=== PATIENT | female | born 1955 | race Caucasian/White ===

== ENCOUNTER → 2016-08-14 | Outpatient (CLI) | payer OTHER ==
--- NOTE | 2016-08-18 13:46 | MM ---
Reason for exam: screening (asymptomatic). Last mammogram was performed 1 year ago. History: Patient is postmenopausal and has history of other cancer at age 40. Took estrogen for 4 years 6 months beginning at age 46. Took progesterone for 4 years 6 months beginning at age 46. Physical Findings: A clinical breast exam by your physician is recommended on an annual basis and results should be correlated with mammographic findings. MG Screening Mammo w CAD Bilateral CC and MLO view(s) were taken. Prior study comparison: August 06, 2014, bilateral MG screening mammo w CAD. August 03, 2013, bilateral MG screening mammo w CAD. There are scattered fibroglandular densities. Finding: There are typically a few benign round calcifications in both breasts. ASSESSMENT: Benign, BI-RAD 2 RECOMMENDATION: Routine screening mammogram of both breasts in 1 year.
== END | disposition home or self-care (01) ==
LOC: RADMAMWWP 10:53
PROVIDERS: ATTEND Family Medicine
DX: Z12.31 Encounter for screening mammogram for malignant neoplasm of breast (principal); R92.1 Mammographic calcification found on diagnostic imaging of breast

== ENCOUNTER → 2017-09-01 | Outpatient (CLI) | payer OTHER ==
--- NOTE | 2017-09-03 10:47 | MM ---
Reason for exam: screening (asymptomatic). Last mammogram was performed 1 year and 1 month ago. History: Patient is postmenopausal and has history of other cancer at age 40. Took estrogen for 4 years 6 months beginning at age 46. Took progesterone for 4 years 6 months beginning at age 46. Physical Findings: A clinical breast exam by your physician is recommended on an annual basis and results should be correlated with mammographic findings. MG Screening Mammo w CAD Bilateral CC and MLO view(s) were taken. Prior study comparison: August 14, 2016, bilateral MG screening mammo w CAD. August 14, 2015, bilateral MG 3d screening mammo w/cad. There are scattered fibroglandular densities. There are benign appearing round oval circumscribed bilateral stable masses. Benign appearing bilateral calcifications. No suspicious abnormality. ASSESSMENT: Benign, BI-RAD 2 RECOMMENDATION: Routine screening mammogram of both breasts in 1 year.
== END | disposition home or self-care (01) ==
LOC: RADMAMWWP 15:06
PROVIDERS: ATTEND Family Medicine
DX: Z12.31 Encounter for screening mammogram for malignant neoplasm of breast (principal)
CPT/HCPCS: 77067

== ENCOUNTER → 2018-08-12 | Outpatient (CLI) | payer OTHER ==
--- NOTE | 2018-08-12 19:10 | MR ---
EXAMINATION TYPE: MR lumbar spine wo con DATE OF EXAM: 08/12/2018 COMPARISON: None HISTORY: LBP, lt sciatica x 4 mos, no trauma CONTRAST: 0 mL intravenous Gadavist. TECHNIQUE: Multiplanar, multisequence images of the lumbar spine were acquired. FINDINGS: L5-S1: No significant disc bulge or disc herniation. No spinal canal stenosis. There may be some mo derate right foraminal stenosis. Mild facet hypertrophy is present with posterior lateral sac contact . L4-L5: There is a grade 1 spondylolisthesis of L4 anterior on L5. Disc uncovering has mild anterior t hecal sac contact. Facet hypertrophy and ligamentum flavum laxity are present, greater on the left wi th posterior lateral thecal sac compression. Neural foramen are patent. L3-L4: No significant disc bulge or disc herniation. No spinal canal stenosis. No foraminal stenosi s. Facet hypertrophy has posterior lateral thecal sac impression, greater on the left.. L2-L3: No significant disc bulge or disc herniation. No spinal canal stenosis. No foraminal stenosi s. L1-L2: No significant disc bulge or disc herniation. No spinal canal stenosis. No foraminal stenosi s. T12-L1: No significant disc bulge or disc herniation. No spinal canal stenosis. No foraminal stenos is. There is some degenerative disc change T12-L1 and T11-12 evident on the sagittal plane images. Some s ignal may be within the spinal cord posterior to the T11 level on the sagittal T2-weighted images. Re commend thoracic spine MRI with contrast for additional evaluation IMPRESSION: 1. There is some signal abnormality within the spinal cord on T2 sagittal images which is incompletel y evaluated on this examination. Recommend thoracic MRI with contrast with attention to the distal sp inal cord posterior to T11. 2. Grade 1 spondylolisthesis of L4 anterior and L5. 3. Facet hypertrophy with some ligamentum flavum laxity causing posterior lateral thecal sac compress ion L5-S1, L4-5, and L3-4.
== END | disposition home or self-care (01) ==
LOC: RADMRIMAIN 17:40
PROVIDERS: ATTEND Family Medicine
DX: M51.36 Other intervertebral disc degeneration, lumbar region (principal); M43.16 Spondylolisthesis, lumbar region; G95.29 Other cord compression; M24.28 Disorder of ligament, vertebrae; M54.40 Lumbago with sciatica, unspecified side
CPT/HCPCS: 72148

== ENCOUNTER → 2018-09-14 | Outpatient (CLI) | payer OTHER ==
--- NOTE | 2018-09-15 10:30 | MR ---
EXAMINATION TYPE: MR thoracic spine wo/w con DATE OF EXAM: 09/14/2018 COMPARISON: None HISTORY: Back pain x 3 mos, DDD CONTRAST: Performed utilizing 9 mL intravenous Gadavist gadolinium contrast. TECHNIQUE: Multiplanar, multiecho imaging on a 3.0 Tiffani magnet is performed through the thoracic spi ne. There is a punctate hyperintensity on T2-weighted sequences posterior to the T9 level of uncertain et iology. Evaluation with contrast is recommended. Spinal cord otherwise maintains normal signal. Vertebral body alignment is normal. Vertebral body heights are preserved. Disc heights are preserved. Disc hydration levels are preserved. No spinal canal stenosis within the thoracic spine is evident. On cane flume feeding machine operator images there is some disc bulging and narrowing at C3-4 level. This may has some signal brewer ge within the spinal cord. Recommend MRI of the cervical spine for additional evaluation. IMPRESSIONS: 1. Tiny focal area of increased signal within the spinal cord posterior to the T9 level. Additional e valuation with postcontrast MRI thoracic spine is recommended. 2. Changes within the upper cervical spine may have myelomalacia. Recommend MRI cervical spine for ad ditional evaluation, attention C3-4 level
== END | disposition home or self-care (01) ==
LOC: RADMRIMAIN 19:02
PROVIDERS: ATTEND Family Medicine
DX: M51.34 Other intervertebral disc degeneration, thoracic region (principal)
CPT/HCPCS: 72157; A9585

== ENCOUNTER → 2018-09-27 | Outpatient (CLI) | payer OTHER ==
--- NOTE | 2018-09-28 11:33 | MM ---
Reason for exam: screening (asymptomatic). Last mammogram was performed 1 year and 1 month ago. History: Patient is postmenopausal and has history of other cancer at age 40. Took estrogen for 4 years 6 months beginning at age 46. Took progesterone for 4 years 6 months beginning at age 46. Physical Findings: A clinical breast exam by your physician is recommended on an annual basis and results should be correlated with mammographic findings. MG Screening Mammo w CAD Bilateral CC and MLO view(s) were taken. Prior study comparison: September 01, 2017, bilateral MG screening mammo w CAD. August 14, 2016, bilateral MG screening mammo w CAD. There are scattered fibroglandular densities. There are benign appearing round oval circumscribed bilateral masses, likely intramammary lymph nodes. Benign appearing bilateral calcifications. No suspicious abnormality. No significant changes when compared with prior studies. ASSESSMENT: Benign, BI-RAD 2 RECOMMENDATION: Routine screening mammogram of both breasts in 1 year.
== END | disposition home or self-care (01) ==
LOC: RADMAMWWP 07:55
PROVIDERS: ATTEND Family Medicine
DX: Z12.31 Encounter for screening mammogram for malignant neoplasm of breast (principal)
CPT/HCPCS: 77067

== ENCOUNTER 2020-03-20 07:02 | Day surgery (SDC) | payer MEDICARE, OTHER ==
[2020-03-18 09:26] VITALS: BMI 21.0
[~2020-03-20 07:02] MED LIST: LACTATED RINGERS 1,000 ML IV SCH
[2020-03-20 07:39] VITALS: TEMP 96.8
[2020-03-20] MEDS ORDERED: LIDOCAINE 1% (10MG/ML) FOR IV START INTRADERMA ONE (07:45)
[2020-03-20] MEDS ORDERED: MIDAZOLAM 2 MG/2 ML VIAL ONE (07:50)
[2020-03-20] MEDS ORDERED: PROPOFOL 10 MG/ML 20 ML VIAL IV ONE (07:50)
[2020-03-20] MEDS ORDERED: fentaNYL (PF) 50 MCG/ML 2 ML AMP ONE (07:50)
[2020-03-20 07:51] LABS: Glucose,Whole Blood 180 mg/dL (75-99)
--- NOTE | 2020-03-20 08:26 | P.PCN ---
Date of Procedure: 03/20/20 Procedure(s) Performed: Brief history: Patient is a pleasant 64-year-old white female scheduled for an elective upper endoscopy as well as colonoscopy as a part of evaluation of I deficiency anemia. She denies any GI symptoms. Procedure performed: Esophagogastroduodenoscopy with biopsy Colonoscopy Preoperative diagnosis: Iron deficiency anemia Anesthesia: [facility] [place] Procedure: After informed consent was obtained from the patient was brought into the endoscopy unit and IV sedation was administered by anesthesia under continuous monitoring. Initially upper endoscopy was done. The Olympus GF 160 video endoscope was inserted inserted into the mouth and esophagus intubated without any difficulty and was gradually advanced into the stomach and duodenum and carefully examined. The bulb and second part of the duodenum appeared normal. His were done from the duodenum to rule out celiac disease. The scope was then withdrawn into the stomach adequately insufflated with air and upon careful examination the antrum @scattered erosions and biopsies were also done from this area. The body, cardia and fundus appeared normal. The scope was then withdrawn into the esophagus. The GE junction was located at 40 cm to the incisors. It appeared regular with no erythema erosions or ulcerations. Rest of the esophagus appeared normal. Patient tolerated the procedure well. At this time the patient continued to remain sedation. Initial digital rectal examination was normal. Olympus CF 160 video colonoscope was then inserted into the rectum and gradually advanced to the cecum without any difficulty. Careful examination was performed as the scope was gradually being withdrawn. The prep was excellent. The cecum, ascending colon, transverse colon, descending colon, sigmoid colon and rectum appeared normal. Retroflexion was performed in the rectum and no lesions were noted. Patient tolerated the procedure well. Impression: 1. Upper Endoscopy revealed erosive gastritis but no evidence of esophagitis or peptic ulcer 2. Coloscopy was within normal limits with no evidence of colitis or colorectal neoplasia Recommendations: Findings of this examination were discussed with the patient as well as her family. She was advised to follow with the biopsy results. She can have a repeat screening colonoscopy in 10 years.
[2020-03-20 08:45] VITALS: BP 126/71; PULSE 71; RESP 20
== END 2020-03-20 09:07 | disposition home or self-care (01) ==
LOC: ORWHC2ENDO 07:02
PROVIDERS: ATTEND Internal Medicine Gastroenterology
DX: K29.60 Other gastritis without bleeding (principal); D50.9 Iron deficiency anemia, unspecified; I10 Essential (primary) hypertension; E78.5 Hyperlipidemia, unspecified; G47.33 Obstructive sleep apnea (adult) (pediatric); E11.9 Type 2 diabetes mellitus without complications; Z86.73 Personal history of transient ischemic attack (TIA), and cerebral infarction without residual deficits; Z98.51 Tubal ligation status; Z98.890 Other specified postprocedural states; Z79.84 Long term (current) use of oral hypoglycemic drugs; Z79.82 Long term (current) use of aspirin; Z79.899 Other long term (current) drug therapy; Z91.041 Radiographic dye allergy status
CPT/HCPCS: 88305; 45378; 43239; J2250; J3010; J2704

== ENCOUNTER 2023-07-28 13:20 | Emergency (ER) | payer MEDICARE, OTHER ==
--- NOTE | 2023-07-28 14:42 | ED ---
URI HPI - General Chief Complaint: Upper Respiratory Infection Stated Complaint: Cough,back pain Time Seen by Provider: 07/28/23 13:58 Source: patient, RN notes reviewed Mode of arrival: ambulatory Limitations: no limitations - History of Present Illness Initial Comments: 67-year-old female presents emergency department chief complaint of cough congestion. Patient states she has not felt well for the last week. She was seen in urgent care still she had an ear infection was placed on amoxicillin. She states her cough is worse and is productive. She states she has minimal shortness of breath denies any chest pain denies any abdominal pain no nausea vomit diarrhea constipation no other complaints. She states her significant other was also sick. - Related Data Home Medications Medication Instructions Recorded Confirmed Aspirin EC [Ecotrin] 81 mg PO DAILY 04/26/14 03/20/20 Atorvastatin [Lipitor] 40 mg PO HS 04/26/14 03/20/20 DULoxetine HCL [Cymbalta] 60 mg PO DAILY 04/26/14 03/20/20 Ezetimibe [Zetia] 10 mg PO DAILY 04/26/14 03/20/20 Ferrous Sulfate [Feosol] 325 mg PO HS 04/26/14 03/20/20 Losartan Potassium 100 mg PO DAILY 04/26/14 03/20/20 Multivitamins, Thera [Multivitamin] 1 each PO DAILY 04/26/14 03/20/20 Timolol 0.5% Ophth Soln [Timoptic 1 drop BOTH EYES DAILY 04/26/14 03/20/20 0.5% Ophth Soln] Travoprost [Travatan Z 0.004%] 1 drop BOTH EYES HS 04/26/14 03/20/20 Vit A/Vit C/Vit E/Zinc/Copper 1 cap PO DAILY 04/26/14 03/20/20 [ICAPS SOFTGEL] buPROPion HCL [Wellbutrin XL] 300 mg PO DAILY 04/26/14 03/20/20 lamoTRIgine [LaMICtal] 300 mg PO HS 04/26/14 03/20/20 metFORMIN HCL [Glucophage] 1,000 mg PO BID 04/26/14 03/20/20 nadoloL [Corgard] 40 mg PO HS 04/26/14 03/20/20 Previous Rx's Medication Instructions Recorded Azithromycin [Zithromax Z Pack] 0 tab PO DIRECTED #6 tab 07/28/23 predniSONE 50 mg PO DAILY #5 tab 07/28/23 Allergies Allergy/AdvReac Type Severity Reaction Status Date / Time CAT SCAN CONTRAST AdvReac Unknown BLOOD Uncoded 07/28/23 13:39 PRESSURE DROPPED. Review of Systems ROS Statement: Those systems with pertinent positive or pertinent negative responses have been documented in the HPI. ROS Other: All systems not noted in ROS Statement are negative. Past Medical History Past Medical History: CVA/TIA, Diabetes Mellitus, Eye Disorder, Hyperlipidemia, Hypertension, Sleep Apnea/CPAP/BIPAP Additional Past Medical History / Comment(s): HX OF TIA, GLAUCOMA, states low hemaglobin History of Any Multi-Drug Resistant Organisms: None Reported Past Surgical History: Appendectomy, Orthopedic Surgery, Tubal Ligation Additional Past Surgical History / Comment(s): RT FOOT SURG. colonoscopy, benign cyst removed from back Past Anesthesia/Blood Transfusion Reactions: Previous Problems w/ Anesthesia Additional Past Anesthesia/Blood Transfusion Reaction / Comment(s): STATES DIFFICULTY WAKING UP. Past Psychological History: Depression Smoking Status: Never smoker Past Alcohol Use History: None Reported Past Drug Use History: None Reported - Past Family History Mother Family Medical History: Cancer Additional Family Medical History / Comment(s): BLADDER & LUNG CA General Exam Limitations: no limitations General appearance: alert, in no apparent distress Head exam: Present: atraumatic, normocephalic, normal inspection Eye exam: Present: normal appearance, PERRL, EOMI. Absent: scleral icterus, conjunctival injection, periorbital swelling ENT exam: Present: normal exam, mucous membranes moist Neck exam: Present: normal inspection. Absent: tenderness, meningismus, lymphadenopathy Respiratory exam: Present: rhonchi. Absent: normal lung sounds bilaterally, respiratory distress, wheezes, rales, stridor Cardiovascular Exam: Present: regular rate, normal rhythm, normal heart sounds. Absent: systolic murmur, diastolic murmur, rubs, gallop, clicks Course Vital Signs 07/28/23 07/28/23 07/28/23 13:34 14:02 16:20 Temperature 98.8 F 98.7 F Pulse Rate 85 80 Respiratory 18 22 18 Rate Blood Pressure 134/73 135/81 O2 Sat by Pulse 97 97 Oximetry Medical Decision Making - Medical Decision Making Was pt. sent in by a medical professional or institution (Dr., PA, CULTURE MEDIA LABORATORY ASSISTANT, urgent care, hospital, or [facility]...) When possible be specific @ -No Did you speak to anyone other than the patient for history (EMS, parent, family, police, friend...)? What history was obtained from this source @ -No Did you review nursing and triage notes (agree or disagree)? Why? @ -I reviewed and agree with nursing and triage notes Were old charts reviewed (outside hosp., previous admission, EMS record, old EKG, old radiological studies, urgent care reports/EKG's, [facility] records)? Report findings @ -No old charts were reviewed Differential Diagnosis (chest pain, altered mental status, abdominal pain women, abdominal pain men, vaginal bleeding, weakness, fever, dyspnea, syncope, headache, dizziness, GI bleed, back pain, seizure, CVA, palpatations, mental health, musculoskeletal)? @ -COVID 19, RSV, influenza, pneumonia, acute bronchitis, URI, this list is not all inclusive EKG interpreted by me (3pts min.). @ -None X-rays interpreted by me (1pt min.). @ -Chest x-ray shows no evidence of pneumonia CT interpreted by me (1pt min.). @ -None done U/S interpreted by me (1pt. min.). @ -None done What testing was considered but not performed or refused? (CT, X-rays, U/S, labs)? Why? @ -None What meds were considered but not given or refused? Why? @ -None Did you discuss the management of the patient with other professionals (professionals i.e. KYLIE Crespo, CULTURE MEDIA LABORATORY ASSISTANT, lab, RT, psych nurse, mental health social worker, funeral car chauffeur, teacher, child support case officer, case sealer)? Give summary @ -No Was smoking cessation discussed for >3mins.? @ -No Was critical care preformed (if so, how long)? @ -No Were there social determinants of health that impacted care today? How? (Homelessness, low income, unemployed, alcoholism, drug addiction, transportation, low edu. Level, literacy, decrease access to med. care, care home, rehab)? @ -No Was there de-escalation of care discussed even if they declined (Discuss DNR or withdrawal of care, Hospice)? DNR status @ -No What co-morbidities impacted this encounter? (DM, HTN, Smoking, COPD, CAD, Cancer, CVA, ARF, Chemo, Hep., AIDS, mental health diagnosis, sleep apnea, morbid obesity)? @ -None Was patient admitted / discharged? Hospital course, mention meds given and route, prescriptions, significant lab abnormalities, going to OR and other pertinent info. @ -Justpatient presented for productive cough, worsening symptoms. Patient does have evidence of tracheobronchitis started on azithromycin, prednisone with close follow-up return parameters discussed. Undiagnosed new problem with uncertain prognosis? @ -No Drug Therapy requiring intensive monitoring for toxicity (Heparin, Nitro, Insulin, Cardizem)? @ -No Were any procedures done? @ -No Diagnosis/symptom? @ -Tracheobronchitis Acute, or Chronic, or Acute on Chronic? @ -Acute Uncomplicated (without systemic symptoms) or Complicated (systemic symptoms)? @ -Uncomplicated Side effects of treatment? @ -No Exacerbation, Progression, or Severe Exacerbation? @ -No Poses a threat to life or bodily function? How? (Chest pain, [place], [place], pneumonia, PE, COPD, DKA, ARF, appy, cholecystitis, CVA, Diverticulitis, Homicidal, Suicidal, threat to staff... and all critical care pts) @ -No - Lab Data Lab Results 07/28/23 Range/Units 14:54 Influenza Type A (PCR) Not Detected (Not Detectd) Influenza Type B (PCR) Not Detected (Not Detectd) RSV (PCR) Not Detected (Not Detectd) SARS-CoV-2 (PCR) Not Detected (Not Detectd) Disposition Clinical Impression: Tracheobronchitis Disposition: HOME SELF-CARE Condition: Stable Instructions (If sedation given, give patient instructions): Upper Respiratory Infection (ED) Additional Instructions: Please return to the Emergency Department if symptoms worsen or any other concerns. Prescriptions: predniSONE 50 mg PO DAILY #5 tab Azithromycin [Zithromax Z Pack] 0 tab PO DIRECTED #6 tab Is patient prescribed a controlled substance at d/c from ED?: No Referrals: Gómez Andrew MD [Primary Care Provider] - 1-2 days Time of Disposition: 15:46
--- NOTE | 2023-07-28 14:44 | XR ---
EXAMINATION TYPE: XR chest 2V DATE OF EXAM: 07/28/2023 COMPARISON: NONE TECHNIQUE: PA and lateral views submitted. HISTORY: Cough FINDINGS: The lungs are clear and there is no pneumothorax, pleural effusion, or focal pneumonia. Heart borde rline in size and no overt failure. Osseous structures demonstrate hypertrophic and degenerative brewer ges of the spine. IMPRESSION: 1. No acute process.
[2023-07-28 16:43] VITALS: BP 135/81; PULSE 80; RESP 18; TEMP 98.7
== END 2023-07-28 16:20 | disposition home or self-care (01) ==
LOC: EC 13:20
DX: J40 Bronchitis, not specified as acute or chronic (principal); Z91.048 Other nonmedicinal substance allergy status
CPT/HCPCS: 71046; 87636; 99283

== ENCOUNTER 2023-10-22 12:13 | Observation (INO) | payer MEDICARE, OTHER ==
--- NOTE | 2023-10-22 12:39 | ED ---
Dizziness HPI - General Source: patient, family Mode of arrival: ambulatory Limitations: no limitations <Modesta Garcia - Last Filed: 10/22/23 12:36> <Jailene Haro - Last Filed: 10/22/23 20:36> - General Chief Complaint: Dizziness Stated Complaint: Dizziness Time Seen by Provider: 10/22/23 12:36 - History of Present Illness Initial Comments: Quick Note: This is a 68-year-old female who presents to the emergency department for dizziness. Patient states that it started 2 days ago. Dizziness is worse when she tries to move her head. She has some associated nausea. States that she feels somewhat unsteady on her feet. Denies any headaches, chest pain, or shortness of breath. Denies any history of vertigo. (Modesta Garcia) 68-year-old female presenting to the ED for chief complaint of dizziness x 2 days with associated right-sided headache. She states that the dizziness is wor se when she moves her head. Describes the sensation as the room is spinning. She is feeling unsteady on her feet due to the dizziness. She has never had this before. Denies chest pain, shortness of breath. Denies history of vertigo. Denies blood thinners. Denies extremity weakness. (Jailene Haro) - Related Data Home Medications Medication Instructions Recorded Confirmed Aspirin EC [Ecotrin] 81 mg PO DAILY 04/26/14 10/22/23 Atorvastatin [Lipitor] 40 mg PO HS 04/26/14 10/22/23 DULoxetine HCL [Cymbalta] 60 mg PO DAILY 04/26/14 10/22/23 Ezetimibe [Zetia] 10 mg PO DAILY 04/26/14 10/22/23 Ferrous Sulfate [Feosol] 325 mg PO DAILY 04/26/14 10/22/23 Losartan Potassium 100 mg PO DAILY 04/26/14 10/22/23 Vit A/Vit C/Vit E/Zinc/Copper 1 cap PO DAILY 04/26/14 10/22/23 [ICAPS SOFTGEL] metFORMIN HCL [Glucophage] 1,000 mg PO BID 04/26/14 10/22/23 Empagliflozin [Jardiance] 10 mg PO DAILY 10/22/23 10/22/23 amLODIPine [Norvasc] 10 mg PO DAILY 10/22/23 10/22/23 buPROPion XL [Wellbutrin XL] 450 mg PO DAILY 10/22/23 10/22/23 lamoTRIgine [lamoTRIgine ODT] 200 mg PO HS 10/22/23 10/22/23 Allergies Allergy/AdvReac Type Severity Reaction Status Date / Time CAT SCAN CONTRAST AdvReac Unknown BLOOD Uncoded 10/22/23 17:48 PRESSURE DROPPED. Review of Systems ROS Other: All systems not noted in ROS Statement are negative. <Modesta Garcia - Last Filed: 10/22/23 12:36> ROS Other: All systems not noted in ROS Statement are negative. <Jailene Haro - Last Filed: 10/22/23 20:36> ROS Statement: Those systems with pertinent positive or pertinent negative responses have been documented in the HPI. Past Medical History Past Medical History: CVA/TIA, Diabetes Mellitus, Eye Disorder, Hyperlipidemia, Hypertension, Sleep Apnea/CPAP/BIPAP Additional Past Medical History / Comment(s): HX OF TIA, GLAUCOMA, states low hemaglobin History of Any Multi-Drug Resistant Organisms: None Reported Past Surgical History: Appendectomy, Orthopedic Surgery, Tubal Ligation Additional Past Surgical History / Comment(s): RT FOOT SURG. colonoscopy, benign cyst removed from back Past Anesthesia/Blood Transfusion Reactions: Previous Problems w/ Anesthesia Additional Past Anesthesia/Blood Transfusion Reaction / Comment(s): STATES DIFFICULTY WAKING UP. Past Psychological History: Depression Smoking Status: Never smoker Past Alcohol Use History: None Reported Past Drug Use History: None Reported - Past Family History Mother Family Medical History: Cancer Additional Family Medical History / Comment(s): BLADDER & LUNG CA <Modesta Garcia - Last Filed: 10/22/23 12:36> General Exam Limitations: no limitations <Modesta Garcia - Last Filed: 10/22/23 12:36> General appearance: alert, in no apparent distress Head exam: Present: atraumatic, normocephalic, normal inspection Eye exam: Present: normal appearance, PERRL, EOMI. Absent: scleral icterus, conjunctival injection, periorbital swelling ENT exam: Present: normal exam, mucous membranes moist, TM's normal bilaterally Neck exam: Present: normal inspection. Absent: tenderness, meningismus, lymphadenopathy Respiratory exam: Present: normal lung sounds bilaterally. Absent: respiratory distress, wheezes, rales, rhonchi, stridor Cardiovascular Exam: Present: regular rate, normal rhythm, normal heart sounds. Absent: systolic murmur, diastolic murmur, rubs, gallop, clicks GI/Abdominal exam: Present: soft, normal bowel sounds. Absent: distended, tenderness, guarding, rebound, rigid Neurological exam: Present: alert, oriented X3, CN II-XII intact Psychiatric exam: Present: normal affect, normal mood Skin exam: Present: warm, dry, intact, normal color. Absent: rash <HaroJailene - Last Filed: 10/22/23 20:36> - General Exam Comments Initial Comments: Visual Physical Exam Vital signs reviewed General: Well-appearing, nontoxic, no acute distress. Head: Normocephalic, atraumatic Eyes: PERRLA, EOMI ENT: Airway patent Chest: Nonlabored breathing Skin: No visual rash, normal skin tone Neuro: Alert and oriented 3 Musculoskeletal: No gross abnormalities (Modesta Garcia) Course Vital Signs 10/22/23 10/22/23 12:33 17:20 Temperature 98.1 F 97.9 F Pulse Rate 73 71 Respiratory 20 18 Rate Blood Pressure 142/74 163/71 O2 Sat by Pulse 96 Oximetry EKG Findings - EKG Results: EKG: interpreted by ERMD (Normal sinus rhythm with left axis deviation, no acute ST changes. Ventricular rate 75 bpm, LA interval 161, QRS duration 85, QT/QTc 391/420) <TahirJailene - Last Filed: 10/22/23 20:36> Medical Decision Making <Modesta Garcia - Last Filed: 10/22/23 12:36> - Lab Data Result diagrams: 10/22/23 12:23 10/22/23 12:23 <Jailene Haro - Last Filed: 10/22/23 20:36> - Medical Decision Making I performed the QuickNote portion of this chart. Signed Modesta Garcia PA-C. (Modesta Garcia) Was pt. sent in by a medical professional or institution ([facility], COMPLIANCE COUNSEL, urgent care, hospital, or intermediate...) When possible be specific @ -No Did you speak to anyone other than the patient for history (EMS, parent, family, police, friend...)? What history was obtained from this source @ -No Did you review nursing and triage notes (agree or disagree)? Why? @ -I reviewed and agree with nursing and triage notes Were old charts reviewed (outside hosp., previous admission, EMS record, old EKG, old radiological studies, urgent care reports/EKG's, intermediate records)? Report findings @ -No old charts were reviewed Differential Diagnosis (chest pain, altered mental status, abdominal pain women, abdominal pain men, vaginal bleeding, weakness, fever, dyspnea, syncope, headache, dizziness, GI bleed, back pain, seizure, CVA, palpatations, mental health, musculoskeletal)? @ -Differential Dizziness: Benign paroxysmal positional Vertigo, Menieres disease, otitis media, acoustic neuroma, vertebrobasilar insufficiency, cerebellar stroke, encephalitis, hypovolemic, arrhythmia, coronary artery syndrome, anemia, this is not meant to be an all-inclusive list EKG interpreted by me (3pts min.). @ -As above X-rays interpreted by me (1pt min.). @ -None done CT interpreted by me (1pt min.). @ -CT of head revealed mild patchy burden of chronic small vessel ischemic disease, however no acute intracranial abnormality U/S interpreted by me (1pt. min.). @ -None done What testing was considered but not performed or refused? (CT, X-rays, U/S, labs)? Why? @ -CT angio cannot be performed due to patient has allergy to contrast dye What meds were considered but not given or refused? Why? @ -None Did you discuss the management of the patient with other professionals (professionals i.e. , PA, COMPLIANCE COUNSEL, lab, RT, psych nurse, manager social, conversion worker, teacher, tactical/mobile watch officer, insurance case manager)? Give summary @ -Spoke with Terra from [facility] who accepts admission at this time for dizziness with consultation to neurology services Was smoking cessation discussed for >3mins.? @ -No Was critical care preformed (if so, how long)? @ -No Were there social determinants of health that impacted care today? How? (Homelessness, low income, unemployed, alcoholism, drug addiction, transportation, low edu. Level, literacy, decrease access to med. care, group home, rehab)? @ -No Was there de-escalation of care discussed even if they declined (Discuss DNR or withdrawal of care, Hospice)? DNR status @ -No What co-morbidities impacted this encounter? (DM, HTN, Smoking, COPD, CAD, Cancer, CVA, ARF, Chemo, Hep., AIDS, mental health diagnosis, sleep apnea, morbid obesity)? @ -None Was patient admitted / discharged? Hospital course, mention meds given and route, prescriptions, significant lab abnormalities, going to OR and other pertinent info. @ -Patient was admitted. Patient was seen and evaluated for dizziness x 2 days with associated right-sided headache. She is feeling unsteady on her feet and having a hard time ambulating. Denies history of vertigo. Vital signs are within normal limits. Lab work is unremarkable. CT of head was negative for acute process. Cannot obtain CT angio due to allergy to contrast dye. I spoke with Terra from [facility] who accepts admission at this time for dizziness with consultations to neurology services. Patient is agreeable to plan. Case was discussed with my ED attending Dr. James. Undiagnosed new problem with uncertain prognosis? @ -No Drug Therapy requiring intensive monitoring for toxicity (Heparin, Nitro, Insulin, Cardizem)? @ -No Were any procedures done? @ -No Diagnosis/symptom? @ -Dizziness Acute, or Chronic, or Acute on Chronic? @ -Acute Uncomplicated (without systemic symptoms) or Complicated (systemic symptoms)? @ -Complicated Side effects of treatment? @ -No Exacerbation, Progression, or Severe Exacerbation? @ -No Poses a threat to life or bodily function? How? (Chest pain, [place], [place], pneumonia, PE, COPD, DKA, ARF, appy, cholecystitis, CVA, Diverticulitis, Homicidal, Suicidal, threat to staff... and all critical care pts) @ -Possibly (Jailene Haro) - Lab Data Lab Results 10/22/23 10/22/23 10/22/23 Range/Units 12:23 12:23 12:23 WBC 7.3 (3.8-10.6) k/uL RBC 4.26 (3.80-5.40) m/uL Hgb 13.0 (11.4-16.0) gm/dL Hct 39.7 (34.0-46.0) % MCV 93.3 (80.0-100.0) fL MCH 30.5 (25.0-35.0) pg MCHC 32.7 (31.0-37.0) g/dL RDW 13.3 (11.5-15.5) % Plt Count 376 (150-450) k/uL MPV 6.9 Neutrophils % 71 % Lymphocytes % 20 % Monocytes % 5 % Eosinophils % 3 % Basophils % 1 % Neutrophils # 5.2 (1.3-7.7) k/uL Lymphocytes # 1.5 (1.0-4.8) k/uL Monocytes # 0.4 (0-1.0) k/uL Eosinophils # 0.2 (0-0.7) k/uL Basophils # 0.1 (0-0.2) k/uL Sodium 137 (137-145) mmol/L Potassium 4.0 (3.5-5.1) mmol/L Chloride 105 (98-107) mmol/L Carbon Dioxide 23 (22-30) mmol/L Anion Gap 9 mmol/L BUN 13 (7-17) mg/dL Creatinine 0.72 (0.52-1.04) mg/dL Est GFR (CKD-EPI)AfAm >90 (>60 ml/min/1.73 sqM) Est GFR (CKD-EPI)NonAf 87 (>60 ml/min/1.73 sqM) Glucose 292 H (74-99) mg/dL Calcium 9.4 (8.4-10.2) mg/dL Total Bilirubin 0.6 (0.2-1.3) mg/dL AST 23 (14-36) U/L ALT 19 (4-34) U/L Alkaline Phosphatase 78 (38-126) U/L Troponin I <0.012 (0.000-0.034) ng/mL Total Protein 6.2 L (6.3-8.2) g/dL Albumin 4.1 (3.5-5.0) g/dL Disposition <Modesta Garcia - Last Filed: 10/22/23 12:36> Time of Disposition: 20:31 <Jailene Haro - Last Filed: 10/22/23 20:36> Clinical Impression: Dizziness Disposition: ADMITTED IP TO THIS [facility] Referrals: Gómez Andrew MD [Primary Care Provider] - 1-2 days
[2023-10-22 13:11] LABS: Basophils # (A) 0.1 k/uL (0-0.2); Basophils % (A) 1 %; Eosinophils # (A) 0.2 k/uL (0-0.7); Eosinophils % (A) 3 %; HCT 39.7 % (34.0-46.0); Lymphocytes # (A) 1.5 k/uL (1.0-4.8); Lymphocytes % (A) 20 %; MCH 30.5 pg (25.0-35.0); MCHC 32.7 g/dL (31.0-37.0); MCV 93.3 fL (80.0-100.0); Mean Platelet Volume 6.9; Monocytes # (A) 0.4 k/uL (0-1.0); Monocytes % (A) 5 %; Neutrophils # (A) 5.2 k/uL (1.3-7.7); Neutrophils % (A) 71 %; Platelet Count 376 k/uL (150-450); RBC 4.26 m/uL (3.80-5.40); RDW 13.3 % (11.5-15.5); WBC 7.3 k/uL (3.8-10.6)
[2023-10-22 13:22] LABS: ALT 19 U/L (4-34); AST 23 U/L (14-36); African American GFR (CKD) >90 (>60 ml/min/1.73 sqM); Albumin 4.1 g/dL (3.5-5.0); Alkaline Phosphatase 78 U/L (38-126); Anion Gap 9 mmol/L; Blood Urea Nitrogen 13 mg/dL (7-17); Calcium 9.4 mg/dL (8.4-10.2); Carbon Dioxide 23 mmol/L (22-30); Chloride 105 mmol/L (98-107); Glucose 292 mg/dL (74-99); Non-African American GFR(CKD) 87 (>60 ml/min/1.73 sqM); Sodium 137 mmol/L (137-145); Total Bilirubin 0.6 mg/dL (0.2-1.3); Total Protein 6.2 g/dL (6.3-8.2)
--- NOTE | 2023-10-22 18:21 | CT ---
EXAMINATION TYPE: CT brain wo con DATE OF EXAM: 10/22/2023 COMPARISON: None HISTORY: 68-year-old female headache for 2 days, dizziness, sense of falling TECHNIQUE: Examination was done in axial plane without intravenous contrast. Coronal and sagittal r econstructions performed. CT DLP: 1103.4 mGycm Automated exposure control for dose reduction was used. FINDINGS: There is no evidence of acute intracranial hemorrhage, acute ischemic changes, mass, mass-effect, or extra-axial fluid collection. There is no effacement of cerebral sulci or basal subarachnoid cister ns. There is no hydrocephalus. There is no midline shift. Rodriguez-white matter distinction is preserv ed. Mild mucosal thickening floors of the maxillary sinuses. Orbits and globes are intact. Mastoid air ce lls are well pneumatized. Mild patchy white matter hypodensities in both cerebral hemispheres. Old lacunar infarct left basal g anglia. Anatomic variation with smaller left lateral ventricle. IMPRESSION: Mild patchy burden of chronic small vessel ischemic disease. No acute intracranial abnormality seen.
[2023-10-22] MEDS: MECLIZINE 12.5 MG TAB PO STA (19:03)
[2023-10-22] MEDS ORDERED: KETOROLAC 15 MG/ML 1 ML VIAL IVP PRN (20:28)
[2023-10-22] MEDS ORDERED: ACETAMINOPHEN TAB 325 MG TAB PO PRN (20:28)
[2023-10-22] MEDS ORDERED: NALOXONE 0.4 MG/ML 1 ML VIAL IV PRN (20:28)
[2023-10-22] MEDS ORDERED: ONDANSETRON 4 MG/2 ML VIAL IVP PRN (20:28)
[2023-10-22] MEDS ORDERED: MORPHINE SULFATE 4 MG/ML SYRINGE IV PRN (20:28)
[2023-10-22] MEDS: SODIUM CHLORIDE 0.9% 1,000 ML IV SCH (21:17)
[2023-10-22 21:29] LABS: Appearance,Urine Cloudy (Clear); Bacteria,Urine Many /hpf; Bilirubin,Urine Negative (Negative); Blood,Urine Negative (Negative); Color,Urine Colorless; Glucose,Urine (UA) Negative (Negative); Ketones,Urine Negative (Negative); Leukocyte Esterase,Urine Large (Negative); Mucus,Urine Rare /hpf; Nitrite,Urine Positive (Negative); Protein,Urine Trace (Negative); RBC,Urine 1 /hpf (0-5); Specific Gravity,Urine 1.012 (1.001-1.035); Squamous Epithelial Cell,Urine 4 /hpf (0-4); Urobilinogen,Urine <2.0 mg/dL (<2.0); WBC,Urine 66 /hpf (0-5)
[2023-10-23 07:22] LABS: Glucose,Whole Blood 126 mg/dL (70-110)
[2023-10-23 08:14] VITALS: RESP 18
--- NOTE | 2023-10-23 12:50 | P.HPIM ---
History of Present Illness 68-year-old female came with complaints of vertigo started about 2 days ago worsens with head movement patient was also having URI-like symptoms along with sore throat although no significant redness was appreciated. Patient symptoms improved with meclizine patient denied any hearing problems denied any ataxia weakness patient does not have any other cerebellar signs. CT showed mild patchy chronic small small microvascular ischemic changes. REVIEW OF SYSTEMS: All other systems are negative except those mentioned in the HPI PHYSICAL EXAMINATION: GENERAL: The patient is alert and oriented x3, not in any acute distress. Well developed, well nourished. HEENT: Pupils are round and equally reacting to light. EOMI. No scleral icterus. No conjunctival pallor. Normocephalic, atraumatic. No pharyngeal erythema. No thyromegaly. CARDIOVASCULAR: S1 and S2 present. No murmurs, rubs, or gallops. PULMONARY: Chest is clear to auscultation, no wheezing or crackles. ABDOMEN: Soft, nontender, nondistended, normoactive bowel sounds. No palpable organomegaly. MUSCULOSKELETAL: No joint swelling or deformity. EXTREMITIES: No cyanosis, clubbing, or pedal edema. NEUROLOGICAL: Gross neurological examination did not reveal any focal deficits. SKIN: No rashes. Assessment and plan Peripheral vertigo probably benign positional vertigo or labyrinthitis, neurology evaluate the patient not planning on any MRI or any further in tervention patient will be discharged on meclizine as needed for dizziness -Type 2 diabetes mellitus -Hypertension -Hyperlipidemia -Sleep apnea -History of CVA TIA in the past -Depression For above-mentioned chronic medical problems patient was resumed on appropriate home medications Patient will be discharged today on meclizine Past Medical History Past Medical History: CVA/TIA, Diabetes Mellitus, Eye Disorder, Hyperlipidemia, Hypertension, Sleep Apnea/CPAP/BIPAP Additional Past Medical History / Comment(s): HX OF TIA, GLAUCOMA, states low hemaglobin History of Any Multi-Drug Resistant Organisms: None Reported Past Surgical History: Appendectomy, Orthopedic Surgery, Tubal Ligation Additional Past Surgical History / Comment(s): RT FOOT SURG. colonoscopy, benign cyst removed from back Past Anesthesia/Blood Transfusion Reactions: Previous Problems w/ Anesthesia Additional Past Anesthesia/Blood Transfusion Reaction / Comment(s): STATES DIFFICULTY WAKING UP. Past Psychological History: Depression Smoking Status: Never smoker Past Alcohol Use History: None Reported Past Drug Use History: None Reported - Past Family History Mother Family Medical History: Cancer Additional Family Medical History / Comment(s): BLADDER & LUNG CA Medications and Allergies Home Medications Medication Instructions Recorded Confirmed Type Aspirin EC [Ecotrin Low Dose] 81 mg PO DAILY 04/26/14 10/22/23 History Atorvastatin [Lipitor] 40 mg PO HS 04/26/14 10/22/23 History DULoxetine HCL [Cymbalta] 60 mg PO DAILY 04/26/14 10/22/23 History Ezetimibe [Zetia] 10 mg PO DAILY 04/26/14 10/22/23 History Ferrous Sulfate [Feosol] 325 mg PO DAILY 04/26/14 10/22/23 History Losartan Potassium 100 mg PO DAILY 04/26/14 10/22/23 History Vit A/Vit C/Vit E/Zinc/Copper 1 cap PO DAILY 04/26/14 10/22/23 History [ICAPS SOFTGEL] metFORMIN HCL [Glucophage] 1,000 mg PO BID 04/26/14 10/22/23 History Empagliflozin [Jardiance] 10 mg PO DAILY 10/22/23 10/22/23 History amLODIPine [Norvasc] 10 mg PO DAILY 10/22/23 10/22/23 History buPROPion XL [Wellbutrin XL] 450 mg PO DAILY 10/22/23 10/22/23 History lamoTRIgine [lamoTRIgine ODT] 200 mg PO HS 10/22/23 10/22/23 History Meclizine [Antivert] 25 mg PO TID PRN #30 tab 10/23/23 Rx Allergies Allergy/AdvReac Type Severity Reaction Status Date / Time CAT SCAN CONTRAST AdvReac Unknown BLOOD Uncoded 10/22/23 17:48 PRESSURE DROPPED. Physical Exam Vitals: Vital Signs Temp Pulse Resp BP Pulse Ox 10/23/23 11:38 98.8 F 71 18 147/84 93 L 10/23/23 08:10 98.3 F 70 18 118/73 96 10/23/23 06:13 72 17 142/87 99 10/23/23 04:45 72 18 132/76 10/23/23 00:43 68 18 114/72 95 10/22/23 21:16 65 18 144/91 96 08/02/24 17:20 97.9 F 71 18 163/71 Results CBC & Chem 7: 10/22/23 12:23 10/22/23 12:23 Labs: Abnormal Lab Results - Last 24 Hours (Table) 10/22/23 10/22/23 10/23/23 Range/Units 12:23 20:45 07:20 Glucose 292 H (74-99) mg/dL POC Glucose (mg/dL) 126 H (70-110) mg/dL Total Protein 6.2 L (6.3-8.2) g/dL Urine Appearance Cloudy H (Clear) Urine Protein Trace H (Negative) Urine Nitrite Positive H (Negative) Ur Leukocyte Esterase Large H (Negative) Urine WBC 66 H (0-5) /hpf Urine Bacteria Many H (None) /hpf Urine Mucus Rare H (None) /hpf
--- NOTE | 2023-10-23 12:51 | P.DS ---
Providers Date of admission: 10/22/23 19:43 Attending physician: Rogerio Keller MD Consults: 10/22/23 20:28 Consult Physician Urgent Consulting Provider: Facundo Nolasco Consult Reason/Comments: dizziness Do you want consulting provider notified?: Yes Primary care physician: [facility] Course: 68-year-old female came with complaints of vertigo started about 2 days ago worsens with head movement patient was also having URI-like symptoms along with sore throat although no significant redness was appreciated. Patient symptoms improved with meclizine patient denied any hearing problems denied any ataxia weakness patient does not have any other cerebellar signs. CT showed mild patchy chronic small small microvascular ischemic changes. REVIEW OF SYSTEMS: All other systems are negative except those mentioned in the HPI PHYSICAL EXAMINATION: GENERAL: The patient is alert and oriented x3, not in any acute distress. Well developed, well nourished. HEENT: Pupils are round and equally reacting to light. EOMI. No scleral icterus. No conjunctival pallor. Normocephalic, atraumatic. No pharyngeal erythema. No thyromegaly. CARDIOVASCULAR: S1 and S2 present. No murmurs, rubs, or gallops. PULMONARY: Chest is clear to auscultation, no wheezing or crackles. ABDOMEN: Soft, nontender, nondistended, normoactive bowel sounds. No palpable organomegaly. MUSCULOSKELETAL: No joint swelling or deformity. EXTREMITIES: No cyanosis, clubbing, or pedal edema. NEUROLOGICAL: Gross neurological examination did not reveal any focal deficits. SKIN: No rashes. Assessment and plan Peripheral vertigo probably benign positional vertigo or labyrinthitis, neurology evaluate the patient not planning on any MRI or any further intervention patient will be discharged on meclizine as needed for dizziness -Type 2 diabetes mellitus -Hypertension -Hyperlipidemia -Sleep apnea -History of CVA TIA in the past -Depression Plan - Discharge Summary New Discharge Prescriptions: New Meclizine [Antivert] 25 mg PO TID PRN #30 tab PRN Reason: Vertigo Continue Ferrous Sulfate [Feosol] 325 mg PO DAILY Aspirin EC [Ecotrin Low Dose] 81 mg PO DAILY Atorvastatin [Lipitor] 40 mg PO HS Vit A/Vit C/Vit E/Zinc/Copper [ICAPS SOFTGEL] 1 cap PO DAILY metFORMIN HCL [Glucophage] 1,000 mg PO BID Ezetimibe [Zetia] 10 mg PO DAILY DULoxetine HCL [Cymbalta] 60 mg PO DAILY Losartan Potassium 100 mg PO DAILY amLODIPine [Norvasc] 10 mg PO DAILY buPROPion XL [Wellbutrin XL] 450 mg PO DAILY Empagliflozin [Jardiance] 10 mg PO DAILY lamoTRIgine [lamoTRIgine ODT] 200 mg PO HS Discharge Medication List Aspirin EC [Ecotrin Low Dose] 81 mg PO DAILY 04/26/14 [History] Atorvastatin [Lipitor] 40 mg PO HS 04/26/14 [History] DULoxetine HCL [Cymbalta] 60 mg PO DAILY 04/26/14 [History] Ezetimibe [Zetia] 10 mg PO DAILY 04/26/14 [History] Ferrous Sulfate [Feosol] 325 mg PO DAILY 04/26/14 [History] Losartan Potassium 100 mg PO DAILY 04/26/14 [History] Vit A/Vit C/Vit E/Zinc/Copper [ICAPS SOFTGEL] 1 cap PO DAILY 04/26/14 [History] metFORMIN HCL [Glucophage] 1,000 mg PO BID 04/26/14 [History] Empagliflozin [Jardiance] 10 mg PO DAILY 10/22/23 [History] amLODIPine [Norvasc] 10 mg PO DAILY 10/22/23 [History] buPROPion XL [Wellbutrin XL] 450 mg PO DAILY 10/22/23 [History] lamoTRIgine [lamoTRIgine ODT] 200 mg PO HS 10/22/23 [History] Meclizine [Antivert] 25 mg PO TID PRN #30 tab 10/23/23 [Rx] Follow up Appointment(s)/Referral(s): Gómez Andrew MD [Primary Care Provider] - 3 Days Discharge Disposition: HOME SELF-CARE
[2023-10-23 13:05] VITALS: BP 133/81; PULSE 62; TEMP 99
--- NOTE | 2023-10-23 13:20 | P.CNNES ---
History of Present Illness Consult date: 10/23/23 Requesting physician: Jailene Haro Reason for Consult: dizziness History of Present Illness: This is a 68 year-old woman who presents to the emergency department because of dizziness. She feels her dizziness started about two days ago. Describe it as room spinning and notices it with head position and alleviated with rest. In the past 1-1/2 had upper respiratory infection with runny nose and cough. She has mild nausea but not vomiting. Denies vocal weakness. Denies speech difficulty. Denies any diplopia. Denies ringing of ears or hearing loss. Denies history of stroke. She feels better today compared to yesterday. Some of the work-up during this hospital visit consisted of: Analysis seems probable suggestive of underlying urinary tract infection. The nitrate is positive, leukocyte Estrace is large, urine white blood cells 66 and urine bacteria is many. CT of the head is reported as mild patchy burden of chronic small vessel ischemic disease. No acute intracranial abnormality seen. I personally reviewed the CT and I agree there is no acute or subacute ischemia. Review of Systems The positive and negative as per HPI. Past Medical History Past Medical History: CVA/TIA, Diabetes Mellitus, Eye Disorder, Hyperlipidemia, Hypertension, Sleep Apnea/CPAP/BIPAP Additional Past Medical History / Comment(s): HX OF TIA, GLAUCOMA, states low hemaglobin History of Any Multi-Drug Resistant Organisms: None Reported Past Surgical History: Appendectomy, Orthopedic Surgery, Tubal Ligation Additional Past Surgical History / Comment(s): RT FOOT SURG. colonoscopy, benign cyst removed from back Past Anesthesia/Blood Transfusion Reactions: Previous Problems w/ Anesthesia Additional Past Anesthesia/Blood Transfusion Reaction / Comment(s): STATES DIFFICULTY WAKING UP. Past Psychological History: Depression Smoking Status: Never smoker Past Alcohol Use History: None Reported Past Drug Use History: None Reported - Past Family History Mother Family Medical History: Cancer Additional Family Medical History / Comment(s): BLADDER & LUNG CA Medications and Allergies Home Medications Medication Instructions Recorded Confirmed Type Aspirin EC [Ecotrin Low Dose] 81 mg PO DAILY 04/26/14 10/22/23 History Atorvastatin [Lipitor] 40 mg PO HS 04/26/14 10/22/23 History DULoxetine HCL [Cymbalta] 60 mg PO DAILY 04/26/14 10/22/23 History Ezetimibe [Zetia] 10 mg PO DAILY 04/26/14 10/22/23 History Ferrous Sulfate [Feosol] 325 mg PO DAILY 04/26/14 10/22/23 History Losartan Potassium 100 mg PO DAILY 04/26/14 10/22/23 History Vit A/Vit C/Vit E/Zinc/Copper 1 cap PO DAILY 04/26/14 10/22/23 History [ICAPS SOFTGEL] metFORMIN HCL [Glucophage] 1,000 mg PO BID 04/26/14 10/22/23 History Empagliflozin [Jardiance] 10 mg PO DAILY 10/22/23 10/22/23 History amLODIPine [Norvasc] 10 mg PO DAILY 10/22/23 10/22/23 History buPROPion XL [Wellbutrin XL] 450 mg PO DAILY 10/22/23 10/22/23 History lamoTRIgine [lamoTRIgine ODT] 200 mg PO HS 10/22/23 10/22/23 History Meclizine [Antivert] 25 mg PO TID PRN #30 tab 10/23/23 Rx Allergies Allergy/AdvReac Type Severity Reaction Status Date / Time CAT SCAN CONTRAST AdvReac Unknown BLOOD Uncoded 10/22/23 17:48 PRESSURE DROPPED. Physical Examination - Vital Signs Vital Signs: Vital Signs Temp Pulse Resp BP Pulse Ox 10/23/23 13:03 99.0 F 62 18 133/81 95 10/23/23 11:38 98.8 F 71 18 147/84 93 L 10/23/23 08:10 98.3 F 70 18 118/73 96 10/23/23 06:13 72 17 142/87 99 10/23/23 04:45 72 18 132/76 10/23/23 00:43 68 18 114/72 95 10/22/23 21:16 65 18 144/91 96 10/22/23 17:20 97.9 F 71 18 163/71 GENERAL: The patient is lying in bed and is not in acute distress. NEUROLOGICAL: Higher mental function: The patient is awake, alert, oriented to self, place and time. Patient is following commands. No aphasia and no neglect. Cranial nerves: The pupils are round, equal and reactive to light and accommodation. Visual maya are full to confrontation throughout. Extraocular movement is intact no nystagmus is noted. Facial sensation is normal to touch throughout. The facial strength is normal throughout. Hearing is normal bilaterally to hand rub. Tongue is midline and moved [id number] without any difficulty. No dysarthria is noted. Shoulder shrug is normal bilaterally. Motor: The strength is 5 over 5 throughout. Normal tone and bulk. Cerebellum: Normal finger to nose heel to holliday bilaterally. Sensation: Sensation is normal to touch throughout. Reflexes (right/left): 2+ throughout. Plantars are downgoing bilaterally. Results - Laboratory Findings CBC and BMP: 10/22/23 12:23 10/22/23 12:23 Abnormal Lab Findings: Abnormal Labs 10/22/23 10/22/23 10/23/23 12:23 20:45 07:20 Glucose 292 H POC Glucose (mg/dL) 126 H Total Protein 6.2 L Urine Appearance Cloudy H Urine Protein Trace H Urine Nitrite Positive H Ur Leukocyte Esterase Large H Urine WBC 66 H Urine Bacteria Many H Urine Mucus Rare H Assessment and Plan Assessment: This is a 68-year-old woman who presents to the emergency department because of dizziness for the last 2 days and she feels its mostly with head movement and described as the room spinning. It is alleviated with rest. In the last 1 to 1-week and a half she had upper respiratory tract infection. Urinalysis seems possible suggestive of underlying infection Acute vertigo seems more peripheral seems more labyrinthitis especially with the recent upper respiratory tract infection. No focal deficit on examination. Patient is doing better today. Probable acute urinary tract infection Plan: I will hold off on pursuing MRI but if she continues to have dizziness then recommend pursuing MRI of the brain with and without Recommend meclizine 25 mg 1 tablet 4 times daily for 7 days and after that as needed. If patient continues to have vertigo then recommend the patient to follow-up with ENT as well as vestibular rehab therapy Will defer the rest of the medical management to primary and other specialist Thank you for the consultation. Time with Patient: Greater than 30
== END 2023-10-23 14:13 | disposition home or self-care (01) ==
LOC: EC 12:13 → 6NMEDSUR 19:43
PROVIDERS: ADMIT Internal Medicine; ATTEND Internal Medicine
DX: H81.399 Other peripheral vertigo, unspecified ear (principal); I67.82 Cerebral ischemia; E11.9 Type 2 diabetes mellitus without complications; I10 Essential (primary) hypertension; E78.5 Hyperlipidemia, unspecified; G47.30 Sleep apnea, unspecified; F32.A Depression, unspecified; R82.71 Bacteriuria; Z79.82 Long term (current) use of aspirin; Z79.84 Long term (current) use of oral hypoglycemic drugs; Z79.899 Other long term (current) drug therapy; Z91.041 Radiographic dye allergy status; Z86.73 Personal history of transient ischemic attack (TIA), and cerebral infarction without residual deficits
CPT/HCPCS: 36415; 93005; 80053; 84484; 85025; 81001; 70450; G0378 ×2; 96360; 96361; 99285

== ENCOUNTER 2023-12-25 16:42 | Emergency (ER) | payer MEDICARE, OTHER ==
[2023-12-25 16:49] VITALS: TEMP 98.2
--- NOTE | 2023-12-25 17:19 | ED ---
Abdominal Pain HPI - General Chief Complaint: Abdominal Pain Stated Complaint: abd pain Time Seen by Provider: 12/25/23 17:00 Source: patient, RN notes reviewed Mode of arrival: ambulatory - History of Present Illness Initial Comments: 68-year-old female presenting to the ER with chief complaint of epigastric pain x 3 days that is worsening in severity. Describes a dull pain in the center of her epigastric region that radiates to the right upper quadrant. Pain is worse with movement. Denies nausea, vomiting, or exacerbation of pain with food. Denies urinary symptoms, constipation, diarrhea, chest pain, fevers, chills. She has a history of an appendectomy and tubal ligation. She takes baby aspirin daily, denies blood thinners. Denies alcohol use. She is never had this pain before. - Related Data Home Medications Medication Instructions Recorded Confirmed Aspirin EC [Ecotrin Low Dose] 81 mg PO DAILY 04/26/14 10/22/23 Atorvastatin [Lipitor] 40 mg PO HS 04/26/14 10/22/23 DULoxetine HCL [Cymbalta] 60 mg PO DAILY 04/26/14 10/22/23 Ezetimibe [Zetia] 10 mg PO DAILY 04/26/14 10/22/23 Ferrous Sulfate [Feosol] 325 mg PO DAILY 04/26/14 10/22/23 Losartan Potassium 100 mg PO DAILY 04/26/14 10/22/23 Vit A/Vit C/Vit E/Zinc/Copper 1 cap PO DAILY 04/26/14 10/22/23 [ICAPS SOFTGEL] metFORMIN HCL [Glucophage] 1,000 mg PO BID 04/26/14 10/22/23 Empagliflozin [Jardiance] 10 mg PO DAILY 10/22/23 10/22/23 amLODIPine [Norvasc] 10 mg PO DAILY 10/22/23 10/22/23 buPROPion XL [Wellbutrin XL] 450 mg PO DAILY 10/22/23 10/22/23 lamoTRIgine [lamoTRIgine ODT] 200 mg PO HS 10/22/23 10/22/23 Previous Rx's Medication Instructions Recorded Meclizine [Antivert] 25 mg PO TID PRN #30 tab 10/23/23 Cephalexin [Keflex] 500 mg PO Q12HR 7 Days #14 cap 12/25/23 Allergies Allergy/AdvReac Type Severity Reaction Status Date / Time CAT SCAN CONTRAST AdvReac Unknown BLOOD Uncoded 12/25/23 16:49 PRESSURE DROPPED. Review of Systems ROS Statement: Those systems with pertinent positive or pertinent negative responses have been documented in the HPI. ROS Other: All systems not noted in ROS Statement are negative. Past Medical History Past Medical History: CVA/TIA, Diabetes Mellitus, Eye Disorder, Hyperlipidemia, Hypertension, Sleep Apnea/CPAP/BIPAP Additional Past Medical History / Comment(s): HX OF TIA, GLAUCOMA, states low hemaglobin History of Any Multi-Drug Resistant Organisms: None Reported Past Surgical History: Appendectomy, Orthopedic Surgery, Tubal Ligation Additional Past Surgical History / Comment(s): RT FOOT SURG. colonoscopy, benign cyst removed from back Past Anesthesia/Blood Transfusion Reactions: Previous Problems w/ Anesthesia Additional Past Anesthesia/Blood Transfusion Reaction / Comment(s): STATES DIFFICULTY WAKING UP. Past Psychological History: Depression Smoking Status: Never smoker Past Alcohol Use History: None Reported Past Drug Use History: None Reported - Past Family History Mother Family Medical History: Cancer Additional Family Medical History / Comment(s): BLADDER & LUNG CA General Exam General appearance: alert, in no apparent distress Head exam: Present: atraumatic, normocephalic, normal inspection Eye exam: Present: normal appearance, PERRL, EOMI. Absent: scleral icterus, conjunctival injection, periorbital swelling ENT exam: Present: normal exam, mucous membranes moist Neck exam: Present: normal inspection. Absent: tenderness, meningismus, lymphadenopathy Respiratory exam: Present: normal lung sounds bilaterally. Absent: respiratory distress, wheezes, rales, rhonchi, stridor Cardiovascular Exam: Present: regular rate, normal rhythm, normal heart sounds. Absent: systolic murmur, diastolic murmur, rubs, gallop, clicks GI/Abdominal exam: Present: soft, tenderness (Mild right upper quadrant tenderness to palpation. Negative Cuellar sign), normal bowel sounds. Absent: distended, guarding, rebound, rigid Back exam: Absent: CVA tenderness (R), CVA tenderness (L) Neurological exam: Present: alert, oriented X3 Psychiatric exam: Present: normal affect, normal mood Skin exam: Present: warm, dry, intact, normal color. Absent: rash Course Vital Signs 12/25/23 12/25/23 12/25/23 16:44 18:11 19:40 Temperature 98.2 F Pulse Rate 95 72 78 Respiratory 18 17 18 Rate Blood Pressure 125/75 110/63 100/70 O2 Sat by Pulse 95 98 96 Oximetry 12/25/23 21:38 Temperature Pulse Rate 70 Respiratory 18 Rate Blood Pressure 111/77 O2 Sat by Pulse 94 L Oximetry Medical Decision Making - Medical Decision Making Was pt. sent in by a medical professional or institution (, PA, [facility], urgent care, hospital, or group home...) When possible be specific @ -No Did you speak to anyone other than the patient for history (EMS, parent, family, police, friend...)? What history was obtained from this source @ -No Did you review nursing and triage notes (agree or disagree)? Why? @ -I reviewed and agree with nursing and triage notes Were old charts reviewed (outside hosp., previous admission, EMS record, old EKG, old radiological studies, urgent care reports/EKG's, group home records)? Report findings @ -No old charts were reviewed Differential Diagnosis (chest pain, altered mental status, abdominal pain women, abdominal pain men, vaginal bleeding, weakness, fever, dyspnea, syncope, hea dache, dizziness, GI bleed, back pain, seizure, CVA, palpatations, mental health, musculoskeletal)? @ -Differential Abdominal Pain Women: Appendicitis, Cholecystitis, diverticulosis, ischemic bowel, pancreatitis, hepatitis, UTI, gastroenteritis, AAA, incarcerated hernia, bowel obstruction, constipation, inflammatory bowel, hepatitis, peptic ulcer disease, splenic infarction, perforated viscus, vulvitis, ovarian torsion, PID, kidney stone, placenta abruption, this is not meant to be an all-inclusive list EKG interpreted by me (3pts min.). @ -As above X-rays interpreted by me (1pt min.). @ -None done CT interpreted by me (1pt min.). @ -CT revealed no suspicious abnormalities to explain epigastric pain, minimal diverticulosis and fecal retention, no obstruction U/S interpreted by me (1pt. min.). @ -Ultrasound reveals hepatomegaly with heterogeneous appearance, some fatty infiltration, 1.8 cm hypoechoic area within the left lobe liver may be hemangioma, slightly hyperechoic area with ill-defined margins within the right lobe liver near diaphragm, at 4.1 x 4 0.5 x 3 x 7 What testing was considered but not performed or refused? (CT, X-rays, U/S, labs)? Why? @ -None What meds were considered but not given or refused? Why? @ -None Did you discuss the management of the patient with other professionals (professionals i.e. , PA, [facility], lab, RT, psych nurse, clinical social worker, biological aide, teacher, training officer, family service caseworker)? Give summary @ -No Was smoking cessation discussed for >3mins.? @ -No Was critical care preformed (if so, how long)? @ -No Were there social determinants of health that impacted care today? How? (Homelessness, low income, unemployed, alcoholism, drug addiction, richardson sportation, low edu. Level, literacy, decrease access to med. care, fci, rehab)? @ -No Was there de-escalation of care discussed even if they declined (Discuss DNR or withdrawal of care, Hospice)? DNR status @ -No What co-morbidities impacted this encounter? (DM, HTN, Smoking, COPD, CAD, Cancer, CVA, ARF, Chemo, Hep., AIDS, mental health diagnosis, sleep apnea, morbid obesity)? @ -None Was patient admitted / discharged? Hospital course, mention meds given and route, prescriptions, significant lab abnormalities, going to OR and other pertinent info. @ -Discharge. This is a 68-year-old female with epigastric pain x 3 days. Denies fevers, nausea, vomiting. Vital signs are within acceptable limits. There is minimal right upper quadrant tenderness to palpation. Patient was provided with IV fluids and analgesics. Lab work including CBC, CMP, lactic, lipase, troponin remarkable for lactic 2.7. White blood cell count is stable at 10.1. Urinalysis is positive for nitrite and 4+ glucose. As nitrite is specific for UTI, discussed we will treat for UTI at this time however I do not believe symptoms are related to epigastric pain. As there was concern for liver changes on ultrasound, CT abdomen was recommended. CT was negative for suspicious abnormality causing epigastric pain. Findings were discussed with patient. Upon reevaluation, patient reports improvement of symptoms. There does not appear to be emergent etiology causing epigastric pain today, however advised to follow-up with PCP if symptoms persist. Return precautions discussed, patient is agreeable to plan. Prescribed Keflex for UTI. Case was discussed with my ED attending Dr. Vicente. Patient discharged in stable condition. Undiagnosed new problem with uncertain prognosis? @ -No Drug Therapy requiring intensive monitoring for toxicity (Heparin, Nitro, Insulin, Cardizem)? @ -No Were any procedures done? @ -No Diagnosis/symptom? @ -Epigastric pain, urinary tract infection Acute, or Chronic, or Acute on Chronic? @ -Acute Uncomplicated (without systemic symptoms) or Complicated (systemic symptoms)? @ -Uncomplicated Side effects of treatment? @ -No Exacerbation, Progression, or Severe Exacerbation? @ -No Poses a threat to life or bodily function? How? (Chest pain, USA, ID, pneumonia, PE, COPD, DKA, ARF, appy, cholecystitis, CVA, Diverticulitis, Homicidal, Suicidal, threat to staff... and all critical care pts) @ -No - Lab Data Result diagrams: 12/25/23 17:30 12/25/23 17:30 Lab Results 12/25/23 12/25/23 12/25/23 Range/Units 17:30 17:30 17:30 WBC 10.1 (3.8-10.6) k/uL RBC 4.76 (3.80-5.40) m/uL Hgb 14.4 (11.4-16.0) gm/dL Hct 44.8 (34.0-46.0) % MCV 94.2 (80.0-100.0) fL MCH 30.3 (25.0-35.0) pg MCHC 32.2 (31.0-37.0) g/dL RDW 13.3 (11.5-15.5) % Plt Count 379 (150-450) k/uL MPV 7.0 Neutrophils % 69 % Lymphocytes % 19 % Monocytes % 5 % Eosinophils % 3 % Basophils % 1 % Neutrophils # 6.9 (1.3-7.7) k/uL Lymphocytes # 2.0 (1.0-4.8) k/uL Monocytes # 0.5 (0-1.0) k/uL Eosinophils # 0.3 (0-0.7) k/uL Basophils # 0.1 (0-0.2) k/uL Sodium 141 (137-145) mmol/L Potassium 4.0 (3.5-5.1) mmol/L Chloride 103 (98-107) mmol/L Carbon Dioxide 26 (22-30) mmol/L Anion Gap 12 mmol/L BUN 17 (7-17) mg/dL Creatinine 0.92 (0.52-1.04) mg/dL Est GFR (CKD-EPI)AfAm 74 (>60 ml/min/1.73 sqM) Est GFR (CKD-EPI)NonAf 64 (>60 ml/min/1.73 sqM) Glucose 101 H (74-99) mg/dL Lactic Ac Sepsis Rflx Plasma Lactic Acid Matt (0.7-2.0) mmol/L Calcium 9.9 (8.4-10.2) mg/dL Total Bilirubin 0.6 (0.2-1.3) mg/dL AST 22 (14-36) U/L ALT 15 (4-34) U/L Alkaline Phosphatase 83 (38-126) U/L Troponin I (0.000-0.034) ng/mL Total Protein 6.9 (6.3-8.2) g/dL Albumin 4.5 (3.5-5.0) g/dL Lipase 257 (23-300) U/L Urine Color Light Yellow Urine Appearance Cloudy H (Clear) Urine pH 5.5 (5.0-8.0) Ur Specific [place] 1.031 (1.001-1.035) Urine Protein Trace H (Negative) Urine Glucose (UA) 4+ H (Negative) Urine Ketones Negative (Negative) Urine Blood Negative (Negative) Urine Nitrite Positive H (Negative) Urine Bilirubin Negative (Negative) Urine Urobilinogen <2.0 (<2.0) mg/dL Ur Leukocyte Esterase Moderate H (Negative) Urine RBC 2 (0-5) /hpf Urine WBC 150 H (0-5) /hpf Urine WBC Clumps Occasional H (None) /hpf Ur Squamous Epith Cells 9 H (0-4) /hpf Urine Bacteria Few H (None) /hpf Urine Mucus Rare H (None) /hpf 12/25/23 12/25/23 12/25/23 Range/Units 17:30 17:30 18:05 WBC (3.8-10.6) k/uL RBC (3.80-5.40) m/uL Hgb (11.4-16.0) gm/dL Hct (34.0-46.0) % MCV (80.0-100.0) fL MCH (25.0-35.0) pg MCHC (31.0-37.0) g/dL RDW (11.5-15.5) % Plt Count (150-450) k/uL MPV Neutrophils % % Lymphocytes % % Monocytes % % Eosinophils % % Basophils % % Neutrophils # (1.3-7.7) k/uL Lymphocytes # (1.0-4.8) k/uL Monocytes # (0-1.0) k/uL Eosinophils # (0-0.7) k/uL Basophils # (0-0.2) k/uL Sodium (137-145) mmol/L Potassium (3.5-5.1) mmol/L Chloride (98-107) mmol/L Carbon Dioxide (22-30) mmol/L Anion Gap mmol/L BUN (7-17) mg/dL Creatinine (0.52-1.04) mg/dL Est GFR (CKD-EPI)AfAm (>60 ml/min/1.73 sqM) Est GFR (CKD-EPI)NonAf (>60 ml/min/1.73 sqM) Glucose (74-99) mg/dL Lactic Ac Sepsis Rflx Y Plasma Lactic Acid Matt 2.7 H* (0.7-2.0) mmol/L Calcium (8.4-10.2) mg/dL Total Bilirubin (0.2-1.3) mg/dL AST (14-36) U/L ALT (4-34) U/L Alkaline Phosphatase (38-126) U/L Troponin I <0.012 (0.000-0.034) ng/mL Total Protein (6.3-8.2) g/dL Albumin (3.5-5.0) g/dL Lipase (23-300) U/L Urine Color Urine Appearance (Clear) Urine pH (5.0-8.0) Ur Specific [place] (1.001-1.035) Urine Protein (Negative) Urine Glucose (UA) (Negative) Urine Ketones (Negative) Urine Blood (Negative) Urine Nitrite (Negative) Urine Bilirubin (Negative) Urine Urobilinogen (<2.0) mg/dL Ur Leukocyte Esterase (Negative) Urine RBC (0-5) /hpf Urine WBC (0-5) /hpf Urine WBC Clumps (None) /hpf Ur Squamous Epith Cells (0-4) /hpf Urine Bacteria (None) /hpf Urine Mucus (None) /hpf - EKG Data -: EKG Interpreted by Me EKG Comments: EKG reveals normal sinus rhythm with no ST changes. Ventricular rate 83 bpm, OH interval 162, QRS duration is 73, QT/QTc 365/405 Disposition Clinical Impression: Epigastric pain, Urinary tract infection Disposition: HOME SELF-CARE Condition: Stable Instructions (If sedation given, give patient instructions): Urinary Tract Infection in Women (ED), Epigastric Pain (ED) Additional Instructions: Take Keflex as prescribed for UTI. Follow-up with PCP as discussed. Please return to the Emergency Department if symptoms worsen or any other concerns. Prescriptions: Cephalexin [Keflex] 500 mg PO Q12HR 7 Days #14 cap Is patient prescribed a controlled substance at d/c from ED?: No Referrals: Gómez Andrew MD [Primary Care Provider] - 1-2 days Time of Disposition: 20:28
[2023-12-25 17:41] LABS: Basophils # (A) 0.1 k/uL (0-0.2); Basophils % (A) 1 %; Eosinophils # (A) 0.3 k/uL (0-0.7); Eosinophils % (A) 3 %; HCT 44.8 % (34.0-46.0); HGB 14.4 gm/dL (11.4-16.0); Lymphocytes % (A) 19 %; MCH 30.3 pg (25.0-35.0); MCHC 32.2 g/dL (31.0-37.0); MCV 94.2 fL (80.0-100.0); Monocytes # (A) 0.5 k/uL (0-1.0); Monocytes % (A) 5 %; Neutrophils # (A) 6.9 k/uL (1.3-7.7); Neutrophils % (A) 69 %; Platelet Count 379 k/uL (150-450); RBC 4.76 m/uL (3.80-5.40); RDW 13.3 % (11.5-15.5); WBC 10.1 k/uL (3.8-10.6)
[2023-12-25 17:50] LABS: ALT 15 U/L (4-34); AST 22 U/L (14-36); African American GFR (CKD) 74 (>60 ml/min/1.73 sqM); Albumin 4.5 g/dL (3.5-5.0); Alkaline Phosphatase 83 U/L (38-126); Anion Gap 12 mmol/L; Blood Urea Nitrogen 17 mg/dL (7-17); Calcium 9.9 mg/dL (8.4-10.2); Carbon Dioxide 26 mmol/L (22-30); Chloride 103 mmol/L (98-107); Glucose 101 mg/dL (74-99); Lipase 257 U/L (23-300); Non-African American GFR(CKD) 64 (>60 ml/min/1.73 sqM); Sodium 141 mmol/L (137-145); Total Bilirubin 0.6 mg/dL (0.2-1.3); Total Protein 6.9 g/dL (6.3-8.2)
[2023-12-25 18:03] LABS: Appearance,Urine Cloudy (Clear); Bacteria,Urine Few /hpf; Bilirubin,Urine Negative (Negative); Blood,Urine Negative (Negative); Color,Urine Light Yellow; Glucose,Urine (UA) 4+ (Negative); Ketones,Urine Negative (Negative); Leukocyte Esterase,Urine Moderate (Negative); Mucus,Urine Rare /hpf; Nitrite,Urine Positive (Negative); PH, Urine 5.5 (5.0-8.0); Protein,Urine Trace (Negative); RBC,Urine 2 /hpf (0-5); Specific Gravity,Urine 1.031 (1.001-1.035); Squamous Epithelial Cell,Urine 9 /hpf (0-4); Urobilinogen,Urine <2.0 mg/dL (<2.0); WBC,Urine 150 /hpf (0-5)
[2023-12-25] MEDS: SODIUM CHLORIDE 0.9% 1,000 ML IV STA (18:41)
--- NOTE | 2023-12-25 18:49 | US ---
EXAMINATION TYPE: US gallbladder DATE OF EXAM: 12/25/2023 COMPARISON: NONE CLINICAL INDICATION: Female, 68 years old with history of RUQ pain; RUQ pain x 2-3 days TECHNIQUE: Grayscale and color Doppler imaging of the right upper quadrant was performed. FINDINGS: EXAM MEASUREMENTS: Liver Length: 17.0 cm Gallbladder Wall: 0.3 cm CBD: 0.3 cm Right Kidney: 10.8x4.3x6.2 cm ACCOUNTANT COST NOTES: Pancreas: Obscured by bowel gas Liver: limited evaluation due to bowel gas. The liver appears enlarged and heterogenous with a 1.8cm hyperechoic area in the left lobe and larger hyperechoic heterogenous area in the right lobe measuri ng up to 4.5cm. difficult to appreciate fully on ultrasound Gallbladder: wnl Evidence for sonographic Cuellar's sign: No CBD: wnl Right Kidney: wnl exam limited by bowel gas and body habitus IMPRESSION: 1. Hepatomegaly with a heterogenous appearance. Some fatty infiltration may be present. 2. There is a 1.8 cm hyperechoic area within the left lobe liver may be a hemangioma. 3. There is a slightly hyperechoic area with ill-defined margins within the right lobe liver near the diaphragm measuring 4.1 x 4.5 x 3.7 cm. Additional workup of this area is recommended with contrast CT abdomen. [facility], Workstation: [email or web address], 12/25/2023 6:46 PM
[2023-12-25 19:42] VITALS: RESP 18
[2023-12-25] MEDS: KETOROLAC 15 MG/ML 1 ML VIAL IVP STA ×2 (19:43→21:34)
--- NOTE | 2023-12-25 19:45 | CT ---
EXAMINATION TYPE: CT abdomen pelvis wo con DATE OF EXAM: 12/25/2023 COMPARISON: None INDICATION: Epigastric pain x 2 days DLP: 756.3 mGycm, Automated exposure control for dose reduction was used. CONTRAST: 0 mL of Isovue 300. Study performed without Oral Contrast TECHNIQUE: Axial images were obtained from above the diaphragm to the pubic rami in the axial plane a t 5 mm thick sections. Reconstructed images are reviewed on the computer in the coronal plane. FINDINGS: Limited CT sections are obtained the lung bases. The lung bases are clear. CT ABDOMEN: Liver: Normal Spleen: Normal Pancreas: Normal Adrenal glands: The adrenal glands are normal. Gallbladder: Normal Kidneys: No masses are evident. No hydronephrosis is present. No cysts are present. No renal stone s are evident. Aorta: Vascular calcification is within the aorta. Inferior vena cava: Normal. CT PELVIS: There is dilatation pelvis due to supine artifact from left hip prosthesis. Loops of bowel within the abdomen and pelvis are normal. Some fecal debris is within the colon. St udy is without oral contrast limiting bowel evaluation. Appendix: Not identified. No dilated tubular structure or inflammatory change is evident. Urinary bladder: Normal. Genitourinary structures: Uterus is normal. Adnexa is visualized is unremarkable. Osseous structures: No suspicious lytic or sclerotic lesions. Degenerative changes are within lumbar spine. Left hip prosthesis is present. IMPRESSION: 1. No suspicious abnormality to account for epigastric pain. 2. Minimal diverticulosis and fecal retention. No obstruction evident. [facility], Workstation: [facility], 12/25/2023 7:43 PM
[2023-12-25 21:41] VITALS: BP 111/77; PULSE 70
== END 2023-12-25 21:45 | disposition home or self-care (01) ==
LOC: EC 16:42
CPT/HCPCS: 36415; 74176; 76705; 80053; 81001; 83605; 83690; 84484; 85025; 93005; 96361; 96374; 96376; 99285

== ENCOUNTER → 2024-01-06 | Outpatient (CLI) | payer MEDICARE, OTHER ==
--- NOTE | 2024-01-06 11:54 | NM ---
EXAMINATION TYPE: NM bone scan whole body DATE OF EXAM: 01/06/2024 COMPARISON: NONE CLINICAL INDICATION: Female, 68 years old with history of M47.816 spondylosis; Delayed whole-body scanning was performed following the injection of 25.4 mCi Tc 99m MDP. Images acq uired 3 hours post injection. FINDINGS: Linear high intensity uptake in the mid to upper thoracic spine likely is related to acute compressio n fractures. Multiple bilateral areas of abnormal uptake involving the anterior rib cage suggestive of fractures. Abnormal uptake involving the knees, feet and shoulders likely post arthritic. Additional mild uptake throughout the cervical, thoracic and lumbar spine most likely is degenerative . Photopenic defect of the left hip compatible with replacement hip surgery. Mild increased uptake kendrick g the right greater trochanter can be associated with bursitis. IMPRESSION: 1. Intense abnormal uptake mid and upper thoracic spine with linear morphology compatible with acute or recent compression fracture. 2. Multiple anterior rib fractures noted involving bilateral rib cage. [facility], , 01/06/2024 11:52 AM
== END | disposition home or self-care (01) ==
LOC: RADNMMAIN 07:21
PROVIDERS: ATTEND Physical Medicine & Rehabilitation
CPT/HCPCS: 78306

== ENCOUNTER 2024-03-24 11:54 | Emergency (ER) | payer MEDICARE, OTHER ==
--- NOTE | 2024-03-24 12:16 | ED ---
Back Pain HPI - General Source: patient, RN notes reviewed Mode of arrival: ambulatory Limitations: no limitations - History of Present Illness MD Complaint: back pain <Modesta Garcia - Last Filed: 03/24/24 12:15> - General Source: patient, RN notes reviewed, old records reviewed <Conner Mendoza - Last Filed: 03/24/24 23:06> - General Chief Complaint: Back Pain/Injury Stated Complaint: Right back pain Time Seen by Provider: 03/24/24 12:08 - History of Present Illness Initial Comments: Quick Note: This is a 68-year-old female who presents to the emergency department for right mid back pain. Denies any injuries. Pain does not radiate anywhere. She does not have any nausea or vomiting. Also denies any urinary symptoms or history of kidney stones. States that pain is mild sitting still, but whenever she moves it becomes much worse. (Modesta Garcia) Is a 68-year-old female presents emergency department complaining of right-sided back pain as well as some urinary discomfort with burning when she pees. Originally seen as a quick note. Denies any fevers, chills, sick contacts. Denies any hematuria. I initially evaluated patient in the waiting room and then evaluate the patient in [facility]. Nausea or vomiting. Denies diarrhea. No other acute complaints. (Conner Mendoza) - Related Data Home Medications Medication Instructions Recorded Confirmed Aspirin EC [Ecotrin Low Dose] 81 mg PO DAILY 04/26/14 10/22/23 Atorvastatin [Lipitor] 40 mg PO HS 04/26/14 10/22/23 DULoxetine HCL [Cymbalta] 60 mg PO DAILY 04/26/14 10/22/23 Ezetimibe [Zetia] 10 mg PO DAILY 04/26/14 10/22/23 Ferrous Sulfate [Feosol] 325 mg PO DAILY 04/26/14 10/22/23 Losartan Potassium 100 mg PO DAILY 04/26/14 10/22/23 Vit A/Vit C/Vit E/Zinc/Copper 1 cap PO DAILY 04/26/14 10/22/23 [ICAPS SOFTGEL] metFORMIN HCL [Glucophage] 1,000 mg PO BID 04/26/14 10/22/23 Empagliflozin [Jardiance] 10 mg PO DAILY 10/22/23 10/22/23 amLODIPine [Norvasc] 10 mg PO DAILY 10/22/23 10/22/23 buPROPion XL [Wellbutrin XL] 450 mg PO DAILY 10/22/23 10/22/23 lamoTRIgine [lamoTRIgine ODT] 200 mg PO HS 10/22/23 10/22/23 Previous Rx's Medication Instructions Recorded Meclizine [Antivert] 25 mg PO TID PRN #30 tab 10/23/23 Cephalexin [Keflex] 500 mg PO Q12HR 7 Days #14 cap 12/25/23 Ciprofloxacin HCl [Cipro] 500 mg PO Q12HR 7 Days #14 tab 03/24/24 Allergies Allergy/AdvReac Type Severity Reaction Status Date / Time CAT SCAN CONTRAST AdvReac Unknown BLOOD Uncoded 03/24/24 13:36 PRESSURE DROPPED. Review of Systems ROS Other: All systems not noted in ROS Statement are negative. <Modesta Garcia - Last Filed: 03/24/24 12:15> ROS Other: All systems not noted in ROS Statement are negative. <Conner Mendoza - Last Filed: 03/24/24 23:06> ROS Statement: Those systems with pertinent positive or pertinent negative responses have been documented in the HPI. Review of Systems: CONST: Denies fever EYES: Denies blurry vision ENT: Denies nasal congestion C/V: Denies Chest pain RESP: Denies shortness of breath GI: Denies abdominal pain : Endorses dysuria SKIN: Denies rash. MSK: Denies joint pain. NEURO: Denies headache (Conner Mendoza) Past Medical History Past Medical History: CVA/TIA, Diabetes Mellitus, Eye Disorder, Hyperlipidemia, Hypertension, Sleep Apnea/CPAP/BIPAP Additional Past Medical History / Comment(s): HX OF TIA, GLAUCOMA, states low hemaglobin History of Any Multi-Drug Resistant Organisms: None Reported Past Surgical History: Appendectomy, Orthopedic Surgery, Tubal Ligation Additional Past Surgical History / Comment(s): RT FOOT SURG. colonoscopy, benign cyst removed from back Past Anesthesia/Blood Transfusion Reactions: Previous Problems w/ Anesthesia Additional Past Anesthesia/Blood Transfusion Reaction / Comment(s): STATES DIFFICULTY WAKING UP. Past Psychological History: Depression Smoking Status: Never smoker Past Alcohol Use History: None Reported Past Drug Use History: None Reported - Past Family History Mother Family Medical History: Cancer Additional Family Medical History / Comment(s): BLADDER & LUNG CA <Modesta Garcia - Last Filed: 03/24/24 12:15> General Exam <Modesta Garcia - Last Filed: 03/24/24 12:15> <Conner Mendoza - Last Filed: 03/24/24 23:06> - General Exam Comments Initial Comments: Visual Physical Exam Vital signs reviewed General: Well-appearing, nontoxic, no acute distress. Head: Normocephalic, atraumatic Eyes: PERRLA, EOMI ENT: Airway patent Chest: Nonlabored breathing Skin: No visual rash, normal skin tone Neuro: Alert and oriented 3 Musculoskeletal: No gross abnormalities (Modesta Garcia) General: Appears in no acute distress. HEAD: Normal with no signs of head trauma. EYES: EOMI ENT: Hearing grossly intact, normal oropharynx. RESPIRATORY: Clear breath sounds bilaterally. No wheezes, rales, or rhonchi. C/V: Regular rate and rhythm. S1 and S2 auscultated, no edema, peripheral pulses 2+ and intact throughout ABD: Abd is soft, nontender, nondistended rebound tenderness. No peritoneal signs. EXT:no obvious deformity SKIN: No rashes or lesions observed on exposed skin. NEURO: Alert and oriented x 4. (Conner Mendoza) Course Vital Signs 03/24/24 03/24/24 13:34 18:54 Temperature 98.7 F Pulse Rate 89 90 Respiratory 18 20 Rate Blood Pressure 133/82 135/80 O2 Sat by Pulse 94 L 96 Oximetry Medical Decision Making <Modesta Garcia - Last Filed: 03/24/24 12:15> - Lab Data Result diagrams: 03/24/24 16:35 03/24/24 16:35 <Conner Mendoza - Last Filed: 03/24/24 23:06> - Medical Decision Making I performed the QuickNote portion of this chart. Signed Modesta Garcia PA-C. (Modesta Garcia) Was pt. sent in by a medical professional or institution (KYLIE Crespo, DATA ENTRY MANAGER, urgent care, hospital, or assisted...) When possible be specific @ -No Did you speak to anyone other than the patient for history (EMS, parent, family, police, friend...)? What history was obtained from this source @ -No Did you review nursing and triage notes (agree or disagree)? Why? @ -I reviewed and agree with nursing and triage notes Were old charts reviewed (outside hosp., previous admission, EMS record, old EKG, old radiological studies, urgent care reports/EKG's, assisted records)? Report findings @ -No old charts were reviewed Differential Diagnosis (chest pain, altered mental status, abdominal pain women, abdominal pain men, vaginal bleeding, weakness, fever, dyspnea, syncope, headache, dizziness, GI bleed, back pain, seizure, CVA, palpatations, mental health, musculoskeletal)? @ -UTI, kidney stone, pyelonephritis. This list is not all inclusive. EKG interpreted by me (3pts min.). @ -None done X-rays interpreted by me (1pt min.). @ -None done CT interpreted by me (1pt min.). @ -None done U/S interpreted by me (1pt. min.). @ -None done What testing was considered but not performed or refused? (CT, X-rays, U/S, labs)? Why? @ -None What meds were considered but not given or refused? Why? @ -None Did you discuss the management of the patient with other professionals (professionals i.e. , PA, DATA ENTRY MANAGER, lab, RT, psych nurse, licensed social worker, heater room helper, te acher, chief science officer, telephonic case manager)? Give summary @ -No Was smoking cessation discussed for >3mins.? @ -No Was critical care preformed (if so, how long)? @ -No Were there social determinants of health that impacted care today? How? (Homelessness, low income, unemployed, alcoholism, drug addiction, transportation, low edu. Level, literacy, decrease access to med. care, nursing home, rehab)? @ -No Was there de-escalation of care discussed even if they declined (Discuss DNR or withdrawal of care, Hospice)? DNR status @ -No What co-morbidities impacted this encounter? (DM, HTN, Smoking, COPD, CAD, C ancer, CVA, ARF, Chemo, Hep., AIDS, mental health diagnosis, sleep apnea, morbid obesity)? @ -None Was patient admitted / discharged? Hospital course, mention meds given and route, prescriptions, significant lab abnormalities, going to OR and other pertinent info. @ -Patient presents with urinary complaints as well as some abdominal and back pain. Urinalysis obtained initially which did show UTI. When I evaluated patient, I discussed results and with her history of diabetes I am concerned for possible pyelonephritis. To decide if she needs imaging or not we will obtain basic labs. She will still wait in the waiting room as we are having high patient volumes in the ER. Labs will be sent. Urine culture sent. Patient will be empirically started on a dose of Rocephin through the IV and is given a Isabella. She was in agreement this plan. Vital signs within acceptable limits. No concern for kidney stone as she has no blood in her urine. Laboratory studies returned within acceptable limits including normal kidney function. I discussed results with patient. She will be discharged home at this time on ciprofloxacin. She was in agreement this plan. Strict return precautions discussed. I will provide the patient with a prescription for ciprofloxacin. I instructed the patient to follow up with their PCP in the next 1-3 days.. I explained that the patient should return to the emergency department if they experience any worsening symptoms. Strict return precautions were discussed with the patient. The patient expressed understanding of these instructions. I answered all questions that the patient had. The patient was discharged home in good condition with their prescriptions and follow up information. Undiagnosed new problem with uncertain prognosis? @ -No Drug Therapy requiring intensive monitoring for toxicity (Heparin, Nitro, Insulin, Cardizem)? @ -No Were any procedures done? @ -No Diagnosis/symptom? @ -UTI Acute, or Chronic, or Acute on Chronic? @ -Acute Uncomplicated (without systemic symptoms) or Complicated (systemic symptoms)? @ -Complicated Side effects of treatment? @ -No Exacerbation, Progression, or Severe Exacerbation? @ -No Poses a threat to life or bodily function? How? (Chest pain, [place], [place], pneumonia, PE, COPD, DKA, ARF, appy, cholecystitis, CVA, Diverticulitis, Homicidal, Suicidal, threat to staff... and all critical care pts) @ -Unlikely at this time (Conner Mendoza) - Lab Data Lab Results 03/24/24 03/24/24 03/24/24 Range/Units 13:35 16:35 16:35 WBC 9.2 (3.8-10.6) k/uL RBC 5.26 (3.80-5.40) m/uL Hgb 15.1 (11.4-16.0) gm/dL Hct 47.3 H (34.0-46.0) % MCV 90.0 (80.0-100.0) fL MCH 28.7 (25.0-35.0) pg MCHC 31.9 (31.0-37.0) g/dL RDW 13.4 (11.5-15.5) % Plt Count 310 (150-450) k/uL MPV 6.7 Neutrophils % 71 % Lymphocytes % 20 % Monocytes % 4 % Eosinophils % 3 % Basophils % 1 % Neutrophils # 6.5 (1.3-7.7) k/uL Lymphocytes # 1.8 (1.0-4.8) k/uL Monocytes # 0.4 (0-1.0) k/uL Eosinophils # 0.3 (0-0.7) k/uL Basophils # 0.1 (0-0.2) k/uL Sodium 141 (137-145) mmol/L Potassium 4.4 (3.5-5.1) mmol/L Chloride 103 (98-107) mmol/L Carbon Dioxide 25 (22-30) mmol/L Anion Gap 13 mmol/L BUN 20 H (7-17) mg/dL Creatinine 0.95 (0.52-1.04) mg/dL Est GFR (CKD-EPI)AfAm 71 (>60 ml/min/1.73 sqM) Est GFR (CKD-EPI)NonAf 62 (>60 ml/min/1.73 sqM) Glucose 100 H (74-99) mg/dL Calcium 10.5 H (8.4-10.2) mg/dL Total Bilirubin 0.8 (0.2-1.3) mg/dL AST 25 (14-36) U/L ALT 20 (4-34) U/L Alkaline Phosphatase 106 (38-126) U/L Total Protein 7.4 (6.3-8.2) g/dL Albumin 4.8 (3.5-5.0) g/dL Urine Color Light Yellow Urine Appearance Cloudy H (Clear) Urine pH 6.5 (5.0-8.0) Ur Specific [place] 1.027 (1.001-1.035) Urine Protein Trace H (Negative) Urine Glucose (UA) 4+ H (Negative) Urine Ketones Negative (Negative) Urine Blood Negative (Negative) Urine Nitrite Positive H (Negative) Urine Bilirubin Negative (Negative) Urine Urobilinogen <2.0 (<2.0) mg/dL Ur Leukocyte Esterase Large H (Negative) Urine RBC 2 (0-5) /hpf Urine WBC 89 H (0-5) /hpf Ur Squamous Epith Cells 3 (0-4) /hpf Urine Bacteria Occasional H (None) /hpf Hyaline Casts 2 (0-2) /lpf Urine Mucus Rare H (None) /hpf Urine Yeast (Budding) Rare H (None) /hpf Disposition <Modesta Garcia - Last Filed: 03/24/24 12:15> Is patient prescribed a controlled substance at d/c from ED?: No Time of Disposition: 17:53 <Conner Mendoza - Last Filed: 03/24/24 23:06> Clinical Impression: UTI (urinary tract infection) Disposition: HOME SELF-CARE Condition: Good Instructions (If sedation given, give patient instructions): Urinary Tract In fection in Women (ED) Prescriptions: Ciprofloxacin HCl [Cipro] 500 mg PO Q12HR 7 Days #14 tab Referrals: Gómez Andrew MD [Primary Care Provider] - 1-2 days
[2024-03-24 13:36] VITALS: TEMP 98.7
[2024-03-24 14:35] LABS: Appearance,Urine Cloudy (Clear); Bacteria,Urine Occasional /hpf; Bilirubin,Urine Negative (Negative); Blood,Urine Negative (Negative); Budding Yeast,Urine Rare /hpf; Color,Urine Light Yellow; Glucose,Urine (UA) 4+ (Negative); Hyaline Casts,Urine 2 /lpf (0-2); Ketones,Urine Negative (Negative); Leukocyte Esterase,Urine Large (Negative); Mucus,Urine Rare /hpf; Nitrite,Urine Positive (Negative); PH, Urine 6.5 (5.0-8.0); Protein,Urine Trace (Negative); RBC,Urine 2 /hpf (0-5); Specific Gravity,Urine 1.027 (1.001-1.035); Squamous Epithelial Cell,Urine 3 /hpf (0-4); Urobilinogen,Urine <2.0 mg/dL (<2.0); WBC,Urine 89 /hpf (0-5)
[2024-03-24 16:53] LABS: Basophils # (A) 0.1 k/uL (0-0.2); Basophils % (A) 1 %; Eosinophils # (A) 0.3 k/uL (0-0.7); Eosinophils % (A) 3 %; HCT 47.3 % (34.0-46.0); HGB 15.1 gm/dL (11.4-16.0); Lymphocytes # (A) 1.8 k/uL (1.0-4.8); Lymphocytes % (A) 20 %; MCH 28.7 pg (25.0-35.0); MCHC 31.9 g/dL (31.0-37.0); Mean Platelet Volume 6.7; Monocytes # (A) 0.4 k/uL (0-1.0); Monocytes % (A) 4 %; Neutrophils # (A) 6.5 k/uL (1.3-7.7); Neutrophils % (A) 71 %; Platelet Count 310 k/uL (150-450); RBC 5.26 m/uL (3.80-5.40); RDW 13.4 % (11.5-15.5); WBC 9.2 k/uL (3.8-10.6)
[2024-03-24 17:08] LABS: ALT 20 U/L (4-34); AST 25 U/L (14-36); African American GFR (CKD) 71 (>60 ml/min/1.73 sqM); Albumin 4.8 g/dL (3.5-5.0); Alkaline Phosphatase 106 U/L (38-126); Anion Gap 13 mmol/L; Blood Urea Nitrogen 20 mg/dL (7-17); Calcium 10.5 mg/dL (8.4-10.2); Carbon Dioxide 25 mmol/L (22-30); Chloride 103 mmol/L (98-107); Glucose 100 mg/dL (74-99); Non-African American GFR(CKD) 62 (>60 ml/min/1.73 sqM); Potassium 4.4 mmol/L (3.5-5.1); Sodium 141 mmol/L (137-145); Total Bilirubin 0.8 mg/dL (0.2-1.3); Total Protein 7.4 g/dL (6.3-8.2)
[2024-03-24] MEDS: HYDROcodone/APAP 5-325MG 1 EACH TAB PO STA (17:46)
[2024-03-24] MEDS: cefTRIAXone IN SWFI 1,000 MG/10 ML SYRINGE IVP STA (17:47)
[2024-03-24] MEDS: CIPROFLOXACIN HCL 500 MG TAB PO STA (18:37)
[2024-03-24 18:55] VITALS: BP 135/80; PULSE 90; RESP 20
== END 2024-03-24 18:59 | disposition home or self-care (01) ==
LOC: EC 11:54
DX: N39.0 Urinary tract infection, site not specified (principal); Z86.73 Personal history of transient ischemic attack (TIA), and cerebral infarction without residual deficits; Z91.09 Other allergy status, other than to drugs and biological substances
CPT/HCPCS: 36415; 80053; 85025; 81001; 87086; 99283; 96374; J0696

== ENCOUNTER → 2024-04-12 | Outpatient (CLI) | payer MEDICARE, OTHER ==
[2024-04-12 14:27] LABS: INR 0.9 (<1.2); Partial Thromboplastin Time 22.4 sec (22.0-30.0); Prothrombin Time 10.3 sec (10.0-12.5)
[2024-04-12 19:34] LABS: Blood Urea Nitrogen 16.6 mg/dL (9.0-27.0); Calcium 9.4 mg/dL (8.7-10.3); Carbon Dioxide 26.9 mmol/L (21.6-31.8); Chloride 104 mmol/L (96-109); Glucose 179 mg/dL (70-110); Potassium 4.6 mmol/L (3.5-5.5); Sodium 143 mmol/L (135-145)
[2024-04-12 19:50] LABS: Appearance,Urine Clear (Clear); Bilirubin,Urine Negative (Negative); Blood,Urine Negative (Negative); Color,Urine Yellow (Yellow); Ketones,Urine Negative (Negative); Nitrite,Urine Negative (Negative); PH, Urine 6.5; Urobilinogen,Urine 0.2 E.U./DL
[2024-04-12 19:53] LABS: Basophils # (A) 0.08 X 10*3/uL (0.00-0.10); Basophils % (A) 1.1 %; Eosinophils # (A) 0.31 X 10*3/uL (0.04-0.35); Eosinophils % (A) 4.4 %; HGB 14.4 g/dL (12.0-15.0); Lymphocytes # (A) 1.31 X 10*3/uL (0.90-5.00); Lymphocytes % (A) 18.5 %; MCH 28.9 pg (27.0-32.0); MCHC 31.3 g/dL (32.0-37.0); MCV 92.2 FL (80.0-97.0); Mean Platelet Volume 9.8 FL (9.5-12.2); Monocytes # (A) 0.42 X 10*3/uL (0.20-1.00); Monocytes % (A) 5.9 %; NRBC Per 100 WBC 0 X 10*3/uL (0.00-0.01); Neutrophils # (A) 4.92 X 10*3/uL (1.80-7.70); Neutrophils % (A) 69.7 %; Platelet Count 306 X 10*3/uL (140-440); RBC 4.99 X 10*6/uL (4.10-5.20); RDW 13.6 % (11.5-14.5); WBC 7.07 X 10*3/uL (4.50-10.00)
[2024-04-12 20:08] LABS: Bacteria,Urine None Seen (None Seen)
== END | disposition home or self-care (01) ==
LOC: LABWHC1 13:34
PROVIDERS: ATTEND Orthopaedic Surgery Orthopaedic Surgery of the Spine
DX: Z01.818 Encounter for other preprocedural examination (principal); I51.89 Other ill-defined heart diseases; M48.54XA Collapsed vertebra, not elsewhere classified, thoracic region, initial encounter for fracture; R94.31 Abnormal electrocardiogram [ECG] [EKG]; Z22.322 Carrier or suspected carrier of Methicillin resistant Staphylococcus aureus
CPT/HCPCS: 36415; 80048; 81001; 85025; 85610; 85730; 86850; 86900; 86901; 87070; 93005

== ENCOUNTER → 2024-04-18 | Outpatient (CLI) | payer MEDICARE, OTHER ==
--- NOTE | 2024-04-18 12:15 | XR ---
EXAMINATION TYPE: XR chest 2V DATE OF EXAM: 04/18/2024 12:11 PM COMPARISON: Chest radiographs from 07/28/2023 TECHNIQUE: XR chest 2V Frontal and lateral views of the chest. CLINICAL INDICATION:Female, 68 years old with history of Z01.818 ENCOUNTER FOR OTHER PREPROCEDURAL EX AMINAT; FINDINGS: Lungs/Pleura: There is no evidence of pleural effusion, focal consolidation, or pneumothorax. Pulmonary vascularity: Unremarkable. Heart/mediastinum: Cardiomediastinal silhouette is unremarkable. Musculoskeletal: No acute osseous pathology. Similar anterior wedging of the midthoracic spine. IMPRESSION: No acute cardiopulmonary disease/process. [facility], , 04/18/2024 12:13 PM
== END | disposition home or self-care (01) ==
LOC: LABPAT 11:58
PROVIDERS: ATTEND Orthopaedic Surgery Orthopaedic Surgery of the Spine
DX: Z01.818 Encounter for other preprocedural examination (principal); M48.00 Spinal stenosis, site unspecified
CPT/HCPCS: 71046

== ENCOUNTER → 2024-04-19 | Day surgery (SDC) | payer MEDICARE, OTHER ==
[~2024-04-19] MED LIST changes: +ALBUTEROL HFA INHALER INHALATION ONE; +ASPIRIN 81 MG PO SCH; +ATORVASTATIN 40 MG TAB PO SCH; +BENZOCAINE/MENTHOL LOZENG 1 EACH LOZENGE MUCOUS MEM PRN; +CYCLOBENZAPRINE 10 MG TAB PO PRN; +DAPAGLIFLOZIN PROPANEDIOL 5 MG TABLET PO SCH; +DEXAMETHASONE SOD PHOSPHATE 4 MG/ML 1 ML VIAL IV ONE; +DULoxetine HCL 60 MG CAPSULE.DR PO SCH; +EZETIMIBE 10 MG TAB PO SCH; +FERROUS SULFATE 325 MG TAB PO SCH; +GLYCOPYRROLATE 0.2 MG/ML 2 ML VIAL ONE; +HYDROcodone/APAP 5-325MG 1 EACH TAB PO PRN; +HYDROmorphone 0.5 MG/0.5 ML SYRINGE IVP PRN; +KETOROLAC 15 MG/ML 1 ML VIAL IVP SCH; -LACTATED RINGERS 1,000 ML IV SCH; +LIDOCAINE 1% (10MG/ML) FOR IV START INTRADERMA PRN; +LIDOCAINE 1% INJ 10MG/ML (20 ML MDV) ONE; +LOSARTAN 50 MG TAB PO SCH; +MIDAZOLAM 2 MG/2 ML VIAL IV PRN; +MIDAZOLAM 2 MG/2 ML VIAL ONE; +NEOSTIGMINE 1 MG/ML 10 ML VIAL ONE; +ONDANSETRON 4 MG/2 ML VIAL IVP PRN; +PROPOFOL 10 MG/ML 20 ML VIAL IV ONE; +ROCURONIUM 10 MG/ML (5 ML VIAL) IV ONE; +SENNOSIDES-DOCUSATE SODIUM 1 EACH TAB PO PRN; +SODIUM CHLORIDE 0.9% 1,000 ML IV SCH; +SUCCINYLCHOLINE CHLORIDE 200 MG/10 ML VIAL IV ONE; +VIT A,C & E-LUTEIN-MINERALS 1 EACH TAB PO SCH; +amLODIPine 10 MG TAB PO SCH; +buPROPion XL 150 MG TAB.ER.24H PO SCH; +fentaNYL (PF) 50 MCG/ML 2 ML AMP IV PRN; +fentaNYL (PF) 50 MCG/ML 2 ML AMP ONE; +lamoTRIgine 100 MG TAB PO SCH; +metFORMIN 500 MG TAB PO SCH
[2024-04-19 07:10] LABS: Glucose,Whole Blood 166 mg/dL (70-110)
[2024-04-19] MEDS: IV FLUID CONTINUATION 1,000 ML IV ONE (07:10)
[2024-04-19] MEDS: LACTATED RINGERS 1,000 ML IV SCH (07:24)
[2024-04-19] MEDS: ONDANSETRON 4 MG/2 ML VIAL IVP ONE (07:25)
[2024-04-19] MEDS: IOPAMIDOL M200 10 ML VIAL MISCELLANE ONE (07:30)
[2024-04-19] MEDS: LIDOCAINE 1%-EPI 1:100,000 20 ML VIAL SQ ONE (08:10)
--- NOTE | 2024-04-19 08:45 | P.OP ---
Date of Procedure: 04/19/24 Preoperative Diagnosis: Subacute osteoporotic T6 and T7 compression fractures Thoracic back pain Failed conservative management Postoperative Diagnosis: Same Anesthesia: GETA Pathology: other (T7 vertebral body biopsy sent to pathology) Condition: stable Disposition: PACU Description of Procedure: BRIEF OPERATIVE NOTE Preoperative Diagnosis: Subacute osteoporotic T6 and T7 compression fractures Thoracic back pain Failed conservative management Postoperative Diagnosis: Same Procedure: Kyphoplasty of T6 and T7 Vertebral body biopsy of T7 Use of biplanar fluoroscopic guidance Surgeon: Dr. Arreguin Cotton Weigher: Fab ESPINAL who is present throughout the entire the case persistence during positioning, dissection, exposure, visualization, and all crucial elements of the case as well as closure. Anesthesia: General anesthesia Estimated blood loss: Less than 10 mL Specimen: Vertebral body biopsy of T7 sent to pathology in formalin Complications: None apparent Components implanted: Bone cement approximately 4 cc in each vertebrae Disposition: To recovery room in good stable condition. OPERATIVE INDICATIONS The patient has been having issues in their back ever since sustaining an injury. She was found to have evidence of compression deformity at T6 and T7. Further imaging showed significant signal change at T7 and limited signal change at T6. Her findings correlated well with her pain at her thoracic spine. The patient has been through conservative treatment. They attempted conservative care with bracing however they're not having any benefit despite brace use. They continue to have significant pain and debility due to their fracture. We discussed various treatment options including surgery, and the patient wishes to proceed with surgery We discussed the risk, patient's alternatives and benefits of surgery including but not limited to, risk of bleeding risk of infection, risk of need for further surgery, risk of decreased, loss of motion, loss of function, cement extravasation, nerve damage, paralysis, heart attack, blindness and . OPERATIVE SUMMARY After discussing all the risks, patient alternatives and benefits at length, the patient elected to proceed with surgical intervention, signed informed consent, and presented for their procedure. The patient was seen and examined in the preoperative holding area and the surgical site was marked. The patient was given antibiotics and brought to the operating room. The patient was sedated and intubated by anesthesia in standard fashion. The patient was positioned on to the operating room table in a prone position on the appropriate well-padded and well molded bilateral chest rolls. We were careful to pad any bony prominences and pressure points. We were careful to maintain the patient's cervical spine and good neutral alignment and position throughout. We used 2 C-arm machines to establish biplanar fluoroscopic guidance in AP and lateral positions. We were able to localize the fractures appropriately both at T6 and T7. The patient was prepped and draped in a normal standard fashion. An appropriate timeout and keystone protocol performed. We were able to proceed with the surgery. The local wound area was infiltrated with local anesthetic. An incision was made over the right lateral aspect of the pedicle over the appropriate levels with a small 2 mm stab incision both at T6 and T7. Intraoperative fluoroscopy was taken which showed a marker at the appropriate level. With the appropriate level positively confirmed, I was able to position a sharp trocar over the lateral aspect of the pedicle. As able to advance the trocar into the pedicle and into the posterior aspect of vertebral body being c areful to avoid penetration cephalad caudad or medially. The trocar was placed appropriately into the posterior aspect of vertebral body at the appropriate levels. This was confirmed with C-arm guidance. With the trocar intact I was then able to take a bone biopsy with a biopsy punch or a bony drill. The biopsy specimen from T7 was passed off to be sent to pathology in formalin. I was then able to place the kyphoplasty balloon within the vertebral body. The position was checked on C-arm. I was able to inflate the balloon under low pressure and visualization with C-arm. The balloon was well enclosed within the vertebral body. The cement was prepared. With the cement at appropriate working condition the balloons were deflated and removed. I was able to place bony cement with trocar with the cement delivery device under low pressure. It had good fill within the vertebral body. There is no evidence of any extravasation of the cement posteriorly toward the canal. The cement was well contained at the appropriate levels with some extravasation into the disc space at T6-7 but overall well-contained. The cement was allowed to cure appropriately. The trochars removed and final images were taken on C-arm. This showed the cement at the appropriate levels of T6 and T7. We were able to proceed with closure. The wound was cleaned and dried and dressed with the appropriate dressing. The drapes were broken down. The patient was gently rolled back onto their hospital bed being careful to maintain their cervical spine and good neutral alignment and position. They were woken up by anesthesia, extubated, and brought to the recovery room in good stable condition. The patient will be admitted to the hospital for observation and for appropriate postoperative care, medical management and monitoring. We will continue to follow them closely about the postoperative course.
--- NOTE | 2024-04-19 08:46 | XR ---
Intraoperative/procedural fluoroscopic services were provided for T6-T7 kyphoplasty. Total fluoroscop y time is 55.1 seconds with a total of 9 submitted images to PACS. Total DAP 6.2403 Gycm2. Please se e the operative note for further details. [facility], , 04/19/2024 8:44 AM
[2024-04-19 09:04] VITALS: TEMP 98
[2024-04-19] MEDS: HYDROmorphone 0.5 MG/0.5 ML SYRINGE IVP PRN (09:17)
[2024-04-19 09:51] LABS: Glucose,Whole Blood 199 mg/dL (70-110)
[2024-04-19 11:48] VITALS: BP 114/72; PULSE 82; RESP 14
== END | disposition home or self-care (01) ==
LOC: OR 06:02
PROVIDERS: ATTEND Orthopaedic Surgery Orthopaedic Surgery of the Spine
DX: M80.08XA Age-related osteoporosis with current pathological fracture, vertebra(e), initial encounter for fracture (principal); I10 Essential (primary) hypertension; E78.5 Hyperlipidemia, unspecified; G47.33 Obstructive sleep apnea (adult) (pediatric); F32.A Depression, unspecified; D64.9 Anemia, unspecified; Z99.89 Dependence on other enabling machines and devices; Z86.73 Personal history of transient ischemic attack (TIA), and cerebral infarction without residual deficits; Z79.82 Long term (current) use of aspirin; Z79.899 Other long term (current) drug therapy; Z91.041 Radiographic dye allergy status
CPT/HCPCS: 22513; 88307; 88311; 72070; C1713; J2250; J0330; J2710; J0690; J2405; J2003; J3010; J2704; J1171; Q9966; J1596

== ENCOUNTER → 2024-09-25 | Outpatient (CLI) | payer MEDICARE, OTHER ==
[2024-09-25 15:24] LABS: ALT 28 U/L (8-44); AST 25 U/L (13-35); Albumin 4.4 g/dL (3.8-4.9); Albumin/Globulin Ratio 2.20 Ratio (1.60-3.17); Alkaline Phosphatase 98 U/L (41-126); Anion Gap 12.80 mmol/L (4.00-12.00); BUN/Creat Ratio 15.78 Ratio (12.00-20.00); Blood Urea Nitrogen 14.2 mg/dL (9.0-27.0); Calcium 9.2 mg/dL (8.7-10.3); Carbon Dioxide 24.2 mmol/L (21.6-31.8); Chloride 106 mmol/L (96-109); Globulin 2.0 g/dL (1.6-3.3); Glucose 124 mg/dL (70-110); Potassium 4.3 mmol/L (3.5-5.5); Sodium 143 mmol/L (135-145); Total Protein 6.4 g/dL (6.2-8.2)
[2024-09-25 15:58] LABS: Basophils # (A) 0.07 X 10*3/uL (0.00-0.10); Basophils % (A) 0.9 %; Eosinophils # (A) 0.24 X 10*3/uL (0.04-0.35); Eosinophils % (A) 3.2 %; HCT 42.3 % (37.2-46.3); HGB 13.4 g/dL (12.0-15.0); Immature Grans, Automated 0.40 %; Lymphocytes # (A) 1.68 X 10*3/uL (0.90-5.00); Lymphocytes % (A) 22.7 %; MCH 28.9 pg (27.0-32.0); MCHC 31.7 g/dL (32.0-37.0); MCV 91.4 FL (80.0-97.0); Monocytes # (A) 0.62 X 10*3/uL (0.20-1.00); Monocytes % (A) 8.4 %; NRBC Per 100 WBC 0 X 10*3/uL (0.00-0.01); Neutrophils # (A) 4.77 X 10*3/uL (1.80-7.70); Neutrophils % (A) 64.4 %; Platelet Count 294 X 10*3/uL (140-440); RBC 4.63 X 10*6/uL (4.10-5.20); RDW 13.4 % (11.5-14.5); WBC 7.41 X 10*3/uL (4.50-10.00)
== END | disposition home or self-care (01) ==
LOC: LABWHC1 11:24
PROVIDERS: ATTEND Internal Medicine Infectious Disease
DX: L03.115 Cellulitis of right lower limb (principal)
CPT/HCPCS: 36415; 80053; 85025; 85652; 86140